=== PATIENT | female | born 1990 | race Caucasian/White ===

== ENCOUNTER → 2016-10-27 | Day surgery (SDC) | payer BC, OTHER ==
[2016-10-20 09:53] VITALS: Ht 162.6 cm; Wt 56.8 kg
[~2016-10-27] VITALS: Ht 162.6 cm; Wt 56.8 kg
[~2016-10-27] MED LIST: ALBU1AER9 INH; AMPH30CA3 PO; ATROPINE SULFATE 0.1 MG/ML 5ML SYR IV PRN; BUPIVACAINE/EPINEPHRINE 0.5% MPF 1:200,000 30 ML VIAL ONE; CEFAZOLIN 1000MG/55 ML D5W IV SCH; DEXAMETHASONE SOD INJ 4 MG/ML VIAL ONE; EpHEDrine SULFATE INJ 50 MG/ML AMP IV PRN; EpHEDrine SULFATE INJ 50 MG/ML AMP ONE; FENTANYL CITRATE INJ 50 MCG/1 ML 2 ML VIAL IV PRN; FENTANYL CITRATE INJ 50 MCG/1 ML 2 ML VIAL ONE; GLYCOPYRROLATE INJ 0.2 MG/ML VIAL ONE; HYDROmorphone INJ 1 MG/ML SYR IV PRN; KETOROLAC TROMETHAMINE 30 MG/ML VIAL IV. PRN; LACTATED RINGER'S 1000ML 1,000 ML IV SCH; LIDOCAINE HCL 2% 2 ML VIAL (20MG/ML) ONE; LIDOCAINE/EPINEPHRINE 1% INJ 50 ML VIAL ONE; MIDAZOLAM HCL 1 MG/ML 2ML VIAL ONE; MISCTAB26 PO; MoRPHine SULFATE 2 MG/ML CARP IV PRN; MoRPHine SULFATE 4 MG/ML 1 ML CARP\\VIAL IV PRN; NEOSTIGMINE METHYLSULFATE 5 MG/5 ML SYR ONE; ONDANSETRON INJ 2 MG/ML 2 ML VIAL IV PRN; ONDANSETRON INJ 2 MG/ML 2 ML VIAL ONE; OXYCODONE/ACETAMINOPHEN 5-325 TAB PO PRN; PHENYLEPHRINE HCL INJ 10 MG/ML VIAL ONE; PRLSR20 PO; PROPOFOL IV EMULSION 10 MG/ML 20 ML VIAL IV ONE; ROCURONIUM BROMIDE 10 MG/ML 5 ML VIAL ONE; ROPIVACAINE 0.5% 5 MG/ML 30 ML VIAL ONE; SODIUM CHLORIDE 0.9% 1000ML 1,000 ML IV SCH; SODIUM CHLORIDE 0.9% INJ 10 ML VIAL ONE; SUCCINYLCHOLINE CHLORIDE 20 MG/ML 10 ML VIAL IV ONE; TIZA4CAP PO; VALA500T60 PO; [UNRECOGNIZED DRUG - OTHER] PO
--- NOTE | 2016-10-27 12:39 | History & Physical Bridge Note ---
H&P Re-Evaluation Bridge Note: I have examined the patient, reviewed the History & Physical and in the interval since the performance of the History & Physical I have noted the following changes of clinical significance: No changes noted
--- NOTE | 2016-10-27 14:18 | [facility] Post Operative Brief Note ---
Immediate Operative Summary Operative Date Oct 27, 2016. Pre-Operative Diagnosis right shoulder acromioclavior athralgia Post-Operative Diagnosis same Procedure(s) Performed Right Shoulder Open Distal Clavicle Excision Surgeon Dr Saleh Receiver/Laborer Surgeon(s) 0 Estimated Blood Loss minimal Findings AC enlargement Specimens A. Right distal clavicle Drains 0 Anesthesia LMA Complication(s) None Disposition Recovery Room / PACU
--- NOTE | 2016-10-27 14:23 | Discharge Instructions ---
Discharge Instructions Admission Reason for Admission: Right Shoulder Acromioclaviolor Arthralgia Discharge Discharge Diagnosis / Problem: SAME Discharge Goals Goal(s): Decrease discomfort, Improve function, Increase independence Activity Recommendations Activity Limitations: per Instructions/Follow-up section Lifting Limitations: no more than 5 pounds Exercise/Sports Limitations: none May Resume Sexual Activity: when tolerated Shower/Bathe: may shower/bathe in 3 days, keep incision dry Driving or Machine Use: resume 1 day after discharge REST, SLING, GENTLE RANGE OF MOTION . Instructions / Follow-Up Instructions / Follow-Up pa NEXT WEEK, DR WEISS APRROX 2 WKS Current Hospital Diet Patient's current hospital diet: Discharge Diet Recommended Diet: Regular Diet Procedures Procedures Performed: Right Shoulder Open Distal Clavicle Excision Pending Studies Studies pending at discharge: no Medical Emergencies . Who to Call and When: Medical Emergencies: If at any time you feel your situation is an emergency, please call 911 immediately. . Non-Emergent Contact Non-Emergency issues call your: Surgeon Call Non-Emergent contact if: you have a fever, temperature is above 100.5, your pain is not controlled, your pain is worsening, your pain is concerning you , wound has increased drainage, wound has increased redness, wound has increased pain, you have any medication questions . "Provider Documentation" section prepared by Emeterio Weiss. VTE Core Measure Inpt VTE Proph given/why not?: Treatment not indicated
[2016-10-27 14:43] VITALS: TEMP 37.4
--- NOTE | 2016-10-27 14:48 | OPERATIVE REPORT ---
DATE OF OPERATION: 10/27/2016 PREOPERATIVE DIAGNOSIS: Right shoulder acromioclavicular joint arthralgia. POSTOPERATIVE DIAGNOSIS: Same. PROCEDURE: Open distal clavicle excision. SURGEON: Dr. Horton. HUMANITIES AND LANGUAGES PROFESSOR: None. ANESTHESIA: Laryngeal mask. INDICATIONS OF PROCEDURE: The patient is a 26-year-old female with right shoulder AC joint pain refractory to nonsurgical treatment including the injections. Her pain is isolated to the AC joint area and has been completely related to prior injections. She has edema on her MRI and what looks like some cystic and degenerative changes on the x-ray. Treatment options, risks and benefits were discussed and she elected to proceed with operative intervention. PROCEDURE IN DETAIL: Informed consent was obtained. The patient identified as Tere Johnson. She identified the operative site as the right shoulder. I marked with my initials. A preop surgical time out was performed. A preop dose of IV antibiotics was given. She was taken to the operating room where general anesthetic was administered. She was positioned beach chair with the neck held in neutral alignment. The torso was secured to the table. The heels were padded. The knees were flexed. The [employer] body positioner was utilized. The right upper extremity was prepped and draped in usual sterile fashion. The examination under anesthesia showed negative jerk test, grade 1 laxity anterior, grade 2 laxity posterior and full range of motion. The AC joint was not unstable, but it was mildly prominent. The right upper extremity was prepped and draped in usual sterile fashion. A longitudinal incision 2 cm in length was made just medial to paralleling the AC joint. Electrocautery and blunt dissection were utilized through the subcutaneous tissues down to the deltotrapezial fascia. This was then opened in line with the shaft of the clavicle. The distal one medial to the clavicle was exposed and resected parallel to the AC joint. A smooth symmetric resection was obtained. The margins were beveled with a rasp and rongeur and there were no bony prominences. The wound was irrigated. Hemostasis with electrocautery. The deltotrapezial fascia was closed with 0 Vicryl in an interrupted fashion, the skin with 2-0 Vicryls and a 4-0 Monocryl subcuticular stitch. A soft sterile dressing was applied. An arm sling was applied. She was awakened from anesthesia without difficulty and taken to recovery in stable condition. The resected distal clavicle appeared normal grossly. It was sent for specimen. Counts were correct at the end of case. Blood loss was minimal. At the conclusion of the operation, I spoke to patient's family and informed them of my findings. Postoperative instructions were given. She will be immobilized in a sling. She can gradually mobilize her arm for light activities as symptoms allow. She will be in for a followup appointment. At the conclusion of the operation, approximately 8 mL of 1% lidocaine and 0.5% Marcaine, both with epinephrine were injected into the AC joint and the incision site. I attest to the content of the Intraoperative Record and any orders documented therein. Any exceptio ns are noted below.
[2016-10-27 15:10] VITALS: BP 113/70; PULSE 66; O2SAT 99
--- NOTE | 2016-10-27 15:15 | Anesthesia Progress Nt - [facility] ---
Anesthesia Post Op Note Date & Time Oct 27, 2016 at 15:14 Vital Signs Pain Intensity: 2 Vital Signs Past 12 Hours Date Time Temp Pulse Resp B/P Pulse Ox O2 Delivery O2 Flow Rate FiO2 10/27/16 15:10 66 16 113/70 99 Room Air 10/27/16 14:43 37.4 70 16 97/63 99 Room Air 10/27/16 14:34 64 13 99 10/27/16 14:34 64 13 10/27/16 14:33 113/64 10/27/16 14:32 37.1 63 16 113/64 99 Room Air Mask 10/27/16 14:29 68 9 10/27/16 14:29 69 9 99 10/27/16 14:28 115/71 10/27/16 14:24 80 16 100 10/27/16 14:24 81 16 10/27/16 14:23 121/70 10/27/16 14:19 91 13 100 10/27/16 14:19 92 13 10/27/16 14:18 123/65 10/27/16 14:14 98 17 100 10/27/16 14:14 97 17 10/27/16 14:13 136/67 10/27/16 14:09 105 14 10/27/16 14:09 104 14 100 10/27/16 14:08 113/60 10/27/16 14:04 108 8 100 10/27/16 14:04 36.9 116 12 123/63 100 Mask 6 10/27/16 14:04 109 8 10/27/16 10:40 36.7 73 20 100/63 95 Room Air Notes Mental Status: alert / awake / arousable, participated in evaluation Pt Amnestic to Procedure: Yes Nausea / Vomiting: adequately controlled Pain: adequately controlled Airway Patency, RR, SpO2: stable & adequate BP & HR: stable & adequate Hydration State: stable & adequate Anesthetic Complications: no major complications apparent
== END | disposition home or self-care (01) ==
LOC: X.SURG 10:26
PROVIDERS: ATTEND Physical Medicine & Rehabilitation Sports Medicine
DX: M19.011 Primary osteoarthritis, right shoulder (principal); R55 Syncope and collapse; M25.511 Pain in right shoulder; K21.9 Gastro-esophageal reflux disease without esophagitis

== ENCOUNTER → 2016-11-14 | Outpatient (CLI) | payer BC, OTHER ==
[~2016-11-14] MED LIST changes: -ATROPINE SULFATE 0.1 MG/ML 5ML SYR IV PRN; -BUPIVACAINE/EPINEPHRINE 0.5% MPF 1:200,000 30 ML VIAL ONE; -CEFAZOLIN 1000MG/55 ML D5W IV SCH; -DEXAMETHASONE SOD INJ 4 MG/ML VIAL ONE; -EpHEDrine SULFATE INJ 50 MG/ML AMP IV PRN; -EpHEDrine SULFATE INJ 50 MG/ML AMP ONE; -FENTANYL CITRATE INJ 50 MCG/1 ML 2 ML VIAL IV PRN; -FENTANYL CITRATE INJ 50 MCG/1 ML 2 ML VIAL ONE; -GLYCOPYRROLATE INJ 0.2 MG/ML VIAL ONE; -HYDROmorphone INJ 1 MG/ML SYR IV PRN; -KETOROLAC TROMETHAMINE 30 MG/ML VIAL IV. PRN; -LACTATED RINGER'S 1000ML 1,000 ML IV SCH; -LIDOCAINE HCL 2% 2 ML VIAL (20MG/ML) ONE; -LIDOCAINE/EPINEPHRINE 1% INJ 50 ML VIAL ONE; -MIDAZOLAM HCL 1 MG/ML 2ML VIAL ONE; -MoRPHine SULFATE 2 MG/ML CARP IV PRN; -MoRPHine SULFATE 4 MG/ML 1 ML CARP\\VIAL IV PRN; -NEOSTIGMINE METHYLSULFATE 5 MG/5 ML SYR ONE; -ONDANSETRON INJ 2 MG/ML 2 ML VIAL IV PRN; -ONDANSETRON INJ 2 MG/ML 2 ML VIAL ONE; -OXYCODONE/ACETAMINOPHEN 5-325 TAB PO PRN; -PHENYLEPHRINE HCL INJ 10 MG/ML VIAL ONE; -PROPOFOL IV EMULSION 10 MG/ML 20 ML VIAL IV ONE; -ROCURONIUM BROMIDE 10 MG/ML 5 ML VIAL ONE; -ROPIVACAINE 0.5% 5 MG/ML 30 ML VIAL ONE; -SODIUM CHLORIDE 0.9% 1000ML 1,000 ML IV SCH; -SODIUM CHLORIDE 0.9% INJ 10 ML VIAL ONE; -SUCCINYLCHOLINE CHLORIDE 20 MG/ML 10 ML VIAL IV ONE
== END | disposition home or self-care (01) ==
LOC: C.RDSM 13:09
PROVIDERS: ATTEND Physical Medicine & Rehabilitation Sports Medicine
DX: M19.90 Unspecified osteoarthritis, unspecified site (principal); M25.511 Pain in right shoulder

== ENCOUNTER → 2017-04-12 | Outpatient (CLI) | payer BC, OTHER | END | disposition home or self-care (01) | LOC: C.PAPS 14:37 | PROVIDERS: ATTEND Obstetrics & Gynecology | DX: Z01.419 Encounter for gynecological examination (general) (routine) without abnormal findings (principal) ==

== ENCOUNTER → 2017-06-30 | Outpatient (CLI) | payer BC, OTHER | END | disposition home or self-care (01) | LOC: C.RDSM 10:30 | PROVIDERS: ATTEND Physical Medicine & Rehabilitation Sports Medicine | DX: M25.512 Pain in left shoulder (principal) ==

== ENCOUNTER → 2017-10-13 | Outpatient (CLI) | payer BC, OTHER ==
[~2017-10-13] MED LIST changes: +BIOT1CAP9 PO; +FOLI1TAB8 PO; +HYDR-5688 PO; +SULF1TAB92 PO; +VNTHFA/IN INH; +[UNRECOGNIZED DRUG - CODE] TOP
== END | disposition home or self-care (01) ==
LOC: C.PAPS 13:48
PROVIDERS: ATTEND Obstetrics & Gynecology
DX: N87.0 Mild cervical dysplasia (principal)

== ENCOUNTER → 2017-10-26 | Day surgery (SDC) | payer OTHER ==
[2017-10-13 12:17] VITALS: Ht 162.6 cm; Wt 59.1 kg
[~2017-10-26] VITALS: Ht 162.6 cm; Wt 59.1 kg
[~2017-10-26] MED LIST changes: +ACETAMINOPHEN 1000 MG/100 ML IV IV ONE; -ALBU1AER9 INH; +ATROPINE SULFATE 0.1 MG/ML 5ML SYR IV PRN; +BUPIVACAINE/EPINEPHRINE 0.5% MPF 1:200,000 30 ML VIAL ONE; +CEFAZOLIN 1000MG IV PUSH 5 ML IV SCH; +DEXAMETHASONE SOD INJ 4 MG/ML VIAL ONE; +EpHEDrine SULFATE INJ 50 MG/ML AMP IV PRN; +FENTANYL CITRATE INJ 50 MCG/1 ML 2 ML VIAL IV PRN; +FENTANYL CITRATE INJ 50 MCG/1 ML 2 ML VIAL ONE; +GLYCOPYRROLATE INJ 0.2 MG/ML VIAL ONE; +HYDROmorphone INJ 1 MG/ML SYR ONE; +LACTATED RINGER'S 1000ML 1,000 ML IV SCH; +LIDOCAINE HCL 2% 2 ML VIAL (20MG/ML) ONE; +LIDOCAINE/EPINEPHRINE 1% 20 ML VIAL ONE; +MIDAZOLAM HCL 1 MG/ML 2ML VIAL ONE; +MoRPHine SULFATE 2 MG/ML CARP IV PRN; +MoRPHine SULFATE 4 MG/ML 1 ML CARP\\VIAL IV PRN; +NEOSTIGMINE METHYLSULFATE 5 MG/5 ML SYR ONE; +ONDANSETRON INJ 2 MG/ML 2 ML VIAL IV PRN; +ONDANSETRON INJ 2 MG/ML 2 ML VIAL ONE; +OXYCODONE/ACETAMINOPHEN 5-325 TAB ONE; +OXYCODONE/ACETAMINOPHEN 5-325 TAB PO PRN; +PROMETHAZINE HCL INJ 12.5 MG in SODIUM CHLORIDE 0.9% 50ML 50 ML IV PRN; +PROPOFOL IV EMULSION 10 MG/ML 20 ML VIAL IV ONE; +ROCURONIUM BROMIDE 10 MG/ML 5 ML VIAL IV ONE; +ROPIVACAINE 0.5% 5 MG/ML 30 ML VIAL ONE; +SODIUM CHLORIDE 0.9% 1000ML 1,000 ML IV SCH; -[UNRECOGNIZED DRUG - OTHER] PO
--- NOTE | 2017-10-26 12:22 | [facility] Post Operative Brief Note ---
Immediate Operative Summary Operative Date Oct 26, 2017. Pre-Operative Diagnosis Left Shoulder AC Joint Arthritis Post-Operative Diagnosis Same Procedure(s) Performed Left Shoulder Open Distal Clavicle Excision Surgeon Dr. Horton [place]aroo Surgeon(s) Seble Servin PA-C, Blanca Sogn, student Estimated Blood Loss Minimal Findings none Specimens A.) Left Distal Clavicle Anesthesia LMA, local Complication(s) None Disposition Recovery Room / PACU
--- NOTE | 2017-10-26 12:43 | Discharge Instructions-SurgCtr ---
Discharge Instructions Date of Service Oct 26, 2017. Visit Reason for Visit: Left Shoulder Ac Joint Arthritis Discharge Discharge Diagnosis / Problem: left shoulder AC joint arthritis Discharge Goals Goal(s): Decrease discomfort, Improve function, Increase independence Activity Recommendations Activity Limitations: per Instructions/Follow-up section Weightbearing Status: Left non-weightbearing (left shoulder) Anesthesia . Post Anesthesia Instructions: If you have had General Anesthesia or IV Sedation: * Do not drive today. * Resume driving when surgeon permits. * Do not make important decisions or sign legal documents today. * Call surgeon for: 1. Temperature elevations greater than 101 degrees F. 2. Uncontrollable pain. 3. Excessive bleeding. 4. Persistent nausea and vomiting. 5. Medication intolerance (nausea, vomiting or rash). * For nausea and vomiting use only clear liquids such as: tea, soda, bouillon until nausea subsides, then gradually increase diet as tolerated. * If you have any concerns or questions, call your surgeon's office. If physician is unavailable and it is an emergency, call 911 or go to the nearest emergency room. . Instructions / Follow-Up Instructions / Follow-Up The following are instructions to follow after "Shoulder Surgery" including, Acromioplasty, Rotator Cuff Repair and Instability Surgery ACTIVITY RECOMMENDATIONS: * Minimize activity after surgery. * No excessive walking, jogging, sports or laboring. * Return to activity is individualized depending on the patient and type of surgery. * Driving is not permitted until at least your first post operative visit. Please ask your doctor when it is safe to resume driving. * Expect increased discomfort with increased activity. Continue to ice the shoulder as needed. SCHOOL/WORK RECOMMENDATIONS: * You may return to sedentary work or school when you are feeling more comfortable. This is usually 3-7 days after surgery. MEDICATIONS: * You will have a prescription for pain medication and an anti-inflammatory medication after surgery. * Use the pain medication for severe pain and the anti-inflammatory for less severe pain. Once the pain medication has run out, try to use the anti-inflammatory medication. If this is not effective, contact the office for assistance. * The pain medication may cause nausea, constipation and drowsiness. You should see how they affect you before driving or similar activity. * The anti-inflammatory medication may cause stomach upset and bleeding. If this occurs let your doctor know immediately . * Take a stool softener like Colace or a laxative like Senokot to prevent constipation. DIET: * Resume previous diet. SPECIAL CARE: ICE: You have the option of an ice cooler, gel packs or ice bags. * If you have an ice cooler, refer to the instructions for that device. The ice cooler may be used continuously. * If you do not have an ice cooler, you will need to use ice bags or gel packs. Do not apply ice directly to the skin. Use a thin dressing or kindra shirt between the skin and ice bag. Apply ice for 20-30 minutes and repeat every 2-4 hours. This is especially important for the first 7-10 days after surgery. Once the pain improves, use ice as needed. ELEVATION: * You may be more comfortable sleeping in an upright position. Use the sling to elevate your arm. DRESSING: * Your dressing will be changed at your first therapy appointment approximately 4-5 days after surgery. Band-aids, tape strips or gauze may be applied. You may then change your dressing daily. * Reapply dressing followed by the EBIce cooling pad (if chosen) and then the sling. * Always wash your hands prior to touching the incision area. * Once the stitches are removed, you may leave the wound open to air or cover with gauze. * Expect some bloody drainage for the first few days after surgery. * Leave the tape strips, if present, in place for 5-7 days. * Band-aids and gauze may be changed daily. * There may be a gauze pad in your armpit area. This can be changed daily or replaced by a dry washcloth. SLING/BRACE: * You will need to use a sling or brace after surgery. The length of time the sling is used is dependent upon the type of surgery performed. * Arthroscopic Acromioplasty requires use of the sling for 2-4 weeks for comfort. * Labral procedures and Rotator Cuff Repairs require use of the sling for a longer period of time. Please check with your doctor prior to discontinuing the sling. BATHING: * You may shower or sponge-bathe immediately after surgery. The post operative shoulder dressing is mostly water-tight. You may shower right over this dressing, but be reasonably careful not to get the gauze or incision wet. * Once the dressing has been changed on the fourth or fifth day after surgery, you may shower and get the incision wet. * Wash with regular soap and water. * Do not bathe (submerge the incision), soak, swim or use a hot tub until the incision is completely healed over with normal skin and the doctor has given the OK to proceed. * There is no need to apply any ointments, powders or salves to your incision. * Do not apply alcohol or hydrogen peroxide directly to the incision. * Diluted peroxide (50:50 mixture with sterile saline) may be used to clean dried blood from around the incision area. THERAPY: * You will begin therapy four or five days after surgery. * Organized therapy with the therapist is important for the first 2-4 months after surgery depending on the type of procedure. During that time you will attend therapy 1-3 times per week. * You will also need to do daily exercises for range of motion and strength as instructed. * Patients who have a Capsular Shift Procedure will need to abide by temporary range of motion limitations. * Patients having Rotator Cuff Surgery are not allowed to actively lift their arms until 4-6 weeks after surgery. * Please check with your doctor regarding appropriate motion restrictions. FOLLOW UP VISIT: * If not already scheduled, please call the office at to schedule a follow-up appointment for 10 days after surgery and monthly thereafter. * You have a physical therapy appointment on 10/30/2017 at 1:00 PM. * You have a follow-up with Dr. Horton on 11/08/2017 at 3:00 PM Diet Recommendations Home Diet: no limitations, resume previous diet Procedures Procedures Performed: Left Shoulder Open Distal Clavicle Excision Pending Studies Studies pending at discharge: no Medical Emergencies . Who to Call and When: Medical Emergencies: If at any time you feel your situation is an emergency, please call 911 immediately. . Non-Emergent Contact Non-Emergency issues call your: Surgeon Call Non-Emergent contact if: temperature is above 101, your pain is not controlled, your pain is worsening, your pain is unusual for you, wound has increased drainage, wound has increased redness, wound has increased pain, you have any medication questions . . "Provider Documentation" section prepared by Helen Servin. . [place] Drug Monitoring Program Search Results: patient reviewed within database, no issues identified
--- NOTE | 2017-10-26 12:47 | [facility] Operative Report ---
Operative Report Operative Date Oct 26, 2017. Pre-Operative Diagnosis Left Shoulder AC Joint Arthritis Post-Operative Diagnosis Same Procedure(s) Performed Left Shoulder Open Distal Clavicle Excision Surgeon Dr. Horton Roll Forming Machine Operator Surgeon(s) Helen Servin PA-C, MESSI Birch student Estimated Blood Loss Minimal Findings Left shoulder AC joint arthritis Specimens A.) Left Distal Clavicle Drains None Anesthesia LMA, local Complication(s) None Disposition Recovery Room / PACU Indications Patient is a 27-year-old female who presented to our office with complaints of left shoulder pain. It's been ongoing for at least a year. Her pain has continued to progressively worsened. X-rays show left shoulder acromioclavicular joint arthritis. Surgical intervention discussed and she wished to proceed with surgery. Risks and complications discussed and informed consent was obtained. Description of Procedure Patient was taken to the operating room and placed under general anesthesia. She was given 1 g of IV Ancef for surgical prophylaxis. Timeout was performed. She was prepped and draped in routine sterile fashion. I was present during the entire case, please see Dr. Horton's operative report for further detail. She was awakened and transferred to the recovery room in stable condition. I attest to the content of the Intraoperative Record and any orders documented therein. Any exceptions are noted below.
--- NOTE | 2017-10-26 12:58 | [facility] Operative Report ---
Operative Report Operative Date Oct 26, 2017. Pre-Operative Diagnosis Left Shoulder AC Joint Arthritis Post-Operative Diagnosis Same Procedure(s) Performed Left Shoulder Open Distal Clavicle Excision Surgeon Dr. Horton Hospitalist Physician Surgeon(s) Helen Servin PA-C, MESSI Birch student Estimated Blood Loss Minimal Findings None Specimens A.) Left Distal Clavicle Anesthesia laryngeal mask. Complication(s) None Disposition Recovery Room / PACU Indications The patient is a 27-year-old female with pain at her left before meals joint. Radiographs show degenerative change. She has had a similar problem on the contralateral shoulder treated successfully with distal clavicle excision. She is taken to surgery for failure of nonoperative management and for excision of her distal clavicle. Description of Procedure Informed consent was obtained. The patient was identified as Brit [email or web address]. She identified the operative site as the left distal clavicle. I marked with my initials. Preoperative surgical timeout was performed. Appropriate dose of IV antibiotics was given. She was taken to the operating room positioned supine. The anesthetic was administered. Examination under anesthesia revealed grade 1 sulcus grade 2 laxity of the shoulder front and back equal bilaterally in full unrestricted range of motion. She was then positioned beachchair using the [facility] body positioner. The mastoid process was padded the neck was held in neutral alignment the torso secured to the table heels were padded knees were flexed. The left upper extremity was prepped and draped in the usual sterile fashion. DVT prophylaxis was not indicated. A 2-1/2 cm incision was made parallel to the skin creases and the distal clavicle. Electrocautery and blunt dissection were were utilized down to the skin and subcutaneous tissues until the deltotrapezial fascia was identified. This was then divided in line with the shaft of the clavicle and the distal clavicle was exposed. The joint orientation was identified and the distal 7-10 mm of clavicle were then transected and removed with an oscillating saw. Distal clavicle appeared to be irregular but not notably soft. There were no spurs remaining around the resected clavicle which was stable. The posterior ligaments were preserved. There were no spurs on the acromial portion. The wound was then irrigated with sterile saline. Prior to start of the procedure I injected with a 50-50 mixture of 1% lidocaine and 0.5% Marcaine both containing epinephrine into the skin and subcutaneous tissues as well as deep within the fat underneath the before meals joint. Several more cc were injected at the end of the operation. Bleeding was controlled with pressure and electrocautery. The fascia was closed with interrupted 0 Vicryl's. The skin was closed with 2-0 Vicryl and a running 3-0 Prolene subcuticular stitch. A soft sterile dressing was applied along with arm sling. The patient was awakened from anesthesia without difficulty. She was taken to the recovery room in stable condition. There were no complications. The resected distal clavicle sent for specimen counts were correct in the case blood loss was minimal. At the conclusion of the operation spoke to the patient's father informed him of my findings gave detailed postoperative instructions. She will be able to have early active movement of her arm and may wean out of the sling as tolerated. She will be in for dressing change early next week. I attest to the content of the Intraoperative Record and any orders documented therein. Any exceptions are noted below.
--- NOTE | 2017-10-26 13:27 | Anesthesia Progress Nt - [facility] ---
Anesthesia Post Op Note Date & Time Oct 26, 2017 at 13:27 Vital Signs Pain Intensity: 2 Vital Signs Past 12 Hours Date Time Temp Pulse Resp B/P (MAP) Pulse Ox O2 Delivery O2 Flow Rate FiO2 10/26/17 13:23 37.3 76 20 109/65 100 Room Air 10/26/17 13:04 83 16 98 10/26/17 13:04 84 16 10/26/17 13:04 84 16 10/26/17 13:04 83 16 98 10/26/17 13:00 110/61 10/26/17 13:00 110/61 10/26/17 12:59 71 24 97 10/26/17 12:59 71 24 97 10/26/17 12:59 71 24 10/26/17 12:59 71 24 10/26/17 12:55 112/63 10/26/17 12:55 112/63 10/26/17 12:54 87 20 100 10/26/17 12:54 87 20 100 10/26/17 12:54 87 20 10/26/17 12:54 87 20 10/26/17 12:51 112/62 10/26/17 12:51 112/62 10/26/17 12:49 82 20 10/26/17 12:49 82 20 100 10/26/17 12:49 82 20 100 10/26/17 12:49 82 20 10/26/17 12:45 119/62 10/26/17 12:45 119/62 10/26/17 12:44 88 16 100 10/26/17 12:44 87 16 10/26/17 12:44 88 16 100 10/26/17 12:44 87 16 10/26/17 12:40 121/63 10/26/17 12:40 121/63 10/26/17 12:40 118/66 10/26/17 12:40 118/66 10/26/17 12:39 102 99 10/26/17 12:39 102 10/26/17 12:39 102 10/26/17 12:39 36.4 97 16 118/66 100 Diffusion Mask 6 10/26/17 12:39 102 99 10/26/17 10:02 36.6 75 16 104/71 (82) 100 Room Air Notes Mental Status: alert / awake / arousable, participated in evaluation Pt Amnestic to Procedure: Yes Nausea / Vomiting: adequately controlled Pain: adequately controlled Airway Patency, RR, SpO2: stable & adequate BP & HR: stable & adequate Hydration State: stable & adequate Anesthetic Complications: no major complications apparent
[2017-10-26 14:35] VITALS: BP 104/71; PULSE 71; TEMP 37; O2SAT 99
== END | disposition home or self-care (01) ==
LOC: X.SURG 09:45
PROVIDERS: ATTEND Physical Medicine & Rehabilitation Sports Medicine
DX: M19.012 Primary osteoarthritis, left shoulder (principal); J45.909 Unspecified asthma, uncomplicated; K21.9 Gastro-esophageal reflux disease without esophagitis; F90.9 Attention-deficit hyperactivity disorder, unspecified type

== ENCOUNTER → 2017-12-08 | Outpatient (CLI) | payer OTHER ==
[~2017-12-08] MED LIST changes: -ACETAMINOPHEN 1000 MG/100 ML IV IV ONE; -ATROPINE SULFATE 0.1 MG/ML 5ML SYR IV PRN; -BUPIVACAINE/EPINEPHRINE 0.5% MPF 1:200,000 30 ML VIAL ONE; -CEFAZOLIN 1000MG IV PUSH 5 ML IV SCH; -DEXAMETHASONE SOD INJ 4 MG/ML VIAL ONE; -EpHEDrine SULFATE INJ 50 MG/ML AMP IV PRN; -FENTANYL CITRATE INJ 50 MCG/1 ML 2 ML VIAL IV PRN; -FENTANYL CITRATE INJ 50 MCG/1 ML 2 ML VIAL ONE; -GLYCOPYRROLATE INJ 0.2 MG/ML VIAL ONE; -HYDROmorphone INJ 1 MG/ML SYR ONE; -LACTATED RINGER'S 1000ML 1,000 ML IV SCH; -LIDOCAINE HCL 2% 2 ML VIAL (20MG/ML) ONE; -LIDOCAINE/EPINEPHRINE 1% 20 ML VIAL ONE; -MIDAZOLAM HCL 1 MG/ML 2ML VIAL ONE; -MoRPHine SULFATE 2 MG/ML CARP IV PRN; -MoRPHine SULFATE 4 MG/ML 1 ML CARP\\VIAL IV PRN; -NEOSTIGMINE METHYLSULFATE 5 MG/5 ML SYR ONE; -ONDANSETRON INJ 2 MG/ML 2 ML VIAL IV PRN; -ONDANSETRON INJ 2 MG/ML 2 ML VIAL ONE; -OXYCODONE/ACETAMINOPHEN 5-325 TAB ONE; -OXYCODONE/ACETAMINOPHEN 5-325 TAB PO PRN; -PROMETHAZINE HCL INJ 12.5 MG in SODIUM CHLORIDE 0.9% 50ML 50 ML IV PRN; -PROPOFOL IV EMULSION 10 MG/ML 20 ML VIAL IV ONE; -ROCURONIUM BROMIDE 10 MG/ML 5 ML VIAL IV ONE; -ROPIVACAINE 0.5% 5 MG/ML 30 ML VIAL ONE; -SODIUM CHLORIDE 0.9% 1000ML 1,000 ML IV SCH
== END | disposition home or self-care (01) ==
LOC: C.RDSM 09:49
PROVIDERS: ATTEND Physical Medicine & Rehabilitation Sports Medicine
DX: M13.812 Other specified arthritis, left shoulder (principal)

== ENCOUNTER 2018-05-18 16:30 | Emergency (ER) | payer OTHER ==
[~2018-05-18] VITALS: Ht 162.6 cm; Wt 59.8 kg
[~2018-05-18 16:30] MED LIST changes: -HYDR-5688 PO
[2018-05-18 16:38] VITALS: BP 113/72; TEMP 36.7; Ht 162.6 cm; Wt 59.8 kg
[2018-05-18] MEDS ORDERED: IBUPROFEN 600 MG TAB PO STA (17:52)
--- NOTE | 2018-05-18 18:21 | DIAGNOSTIC IMAGING REPORT ---
C-SPINE ROUTINE 4 OR 5 VIEWS CLINICAL HISTORY: Neck pain status post trauma COMPARISON STUDY: 12/08/2010 FINDINGS: The prevertebral soft tissues are normal. No fractures or subluxations are visualized. The bony neural foramina appear widely patent bilaterally. IMPRESSION: Normal conventional radiographic evaluation of the cervical spine. Electronically signed by: Edin Patel M.D. 05/18/2018 6:20 PM Dictated Date/Time: 05/18/2018 6:19 PM
[2018-05-18] MEDS ORDERED: CYCL10TA6 PO (18:39)
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
[2018-05-18 18:52] VITALS: PULSE 82; O2SAT 99
== END 2018-05-18 18:53 | disposition home or self-care (01) ==
LOC: C.EDB 16:31 → C.EDD 18:53
DX: S16.1XXA Strain of muscle, fascia and tendon at neck level, initial encounter (principal); V43.52XA Car driver injured in collision with other type car in traffic accident, initial encounter; F90.9 Attention-deficit hyperactivity disorder, unspecified type; K21.9 Gastro-esophageal reflux disease without esophagitis; Z87.820 Personal history of traumatic brain injury

== ENCOUNTER 2020-10-20 07:30 | Inpatient (IN) ==
[2020-10-20] MEDS ORDERED: OXYTOCIN 30 UNITS/500 ML BAG IV PRN ×2 (07:46)
[2020-10-20] MEDS: LACTATED RINGER'S 1,000 ML IV PRN ×4 (08:10→22:28)
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
[2020-10-20 08:38] LABS: Hematocrit (blood only) 35.2 % (37-47); Hemoglobin 11.9 g/dL (12.0-16.0); Mean Corpuscular Hemoglobin 30.6 pg (25-34); Mean Corpuscular Hgb Conc 33.8 g/dL (32-36); Mean Corpuscular Volume 90.5 fL (80-100); Mean Platelet Volume 10.6 fL (7.4-10.4); Platelet Count 296 K/uL (130-400); RDW Coefficient of Variation 13.3 % (11.5-14.5); RDW Standard Deviation 43.8 fL (36.4-46.3); Red Blood Count 3.89 M/uL (4.2-5.4); White Blood Count 11.67 K/uL (4.8-10.8)
[2020-10-20] MEDS ORDERED: fentaNYL citrate 100 MCG/2 ML VIAL ONE (12:58)
[2020-10-20] MEDS ORDERED: ePHEDrine sulfate 50 MG/ML AMP ONE (12:58)
[2020-10-20] MEDS ORDERED: BUPIVACAINE 0.25% 30 ML VIAL ONE (12:58)
[2020-10-20] MEDS ORDERED: SODIUM CHLORIDE 0.9% INJ 10 ML VIAL ONE (12:58)
[2020-10-20] MEDS ORDERED: fentaNYL 2MCG/ML ROPIVACAINE 1.25MG/ML 100 ML BAG EPI ONE (12:59)
[2020-10-20] MEDS ORDERED: NALOXONE HCL 1 MG in SODIUM CHLORIDE 0.9% 1000ML 1,000 ML IV PRN (13:38)
[2020-10-20] MEDS ORDERED: diphenhydrAMINE 50 MG/ML VIAL IV PRN (13:38)
[2020-10-20] MEDS ORDERED: ePHEDrine sulfate 50 MG/ML AMP IV PRN (13:38)
[2020-10-20] MEDS ORDERED: ONDANSETRON INJ 2 MG/ML 2 ML VIAL IV PRN (13:38)
[2020-10-20] MEDS ORDERED: NALOXONE HCL 0.4 MG/1 ML VIAL/CARP IV PRN (13:38)
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
--- NOTE | 2020-10-20 14:43 | Labor Progress Brief Note ---
Date of Service October 20, 2020 Subjective Reason For Note: Routine Evaluation Assessment & Plan (1) Post term over 40 weeks: (2) Gestational diabetes mellitus (GDM): Cat 1, AROM clr, continue pitocin, Vitals with occasional mild range Admission and Anticipated Discharge Date Admission Date: October 20, 2020 Physical Exam Genitourinary: OB Exam Abdomen: + vertex Manual OB Exam: + cervical dilation 4 cm, + cervical effacement 80%, + station -2 and + amniotic fluid clear OB Exam Monitor Tracing: + external FHT monitor used, + external uterine monitor used, + category I and + normal FHT variability; no early decelerations present, no late decelerations present and no variable decelerations Results & Data ([facility]) Vital Signs (Past 12 Hours) Vital Signs Temp Pulse Resp BP Pulse Ox Pulse Ox 10/20/20 14:39 87 98 10/20/20 14:34 86 97 10/20/20 14:32 87 134/74 10/20/20 14:30 18 10/20/20 14:29 82 97 10/20/20 14:24 81 97 10/20/20 14:22 88 134/79 10/20/20 14:19 94 H 98 10/20/20 14:14 93 H 98 10/20/20 14:11 90 132/69 10/20/20 14:09 102 H 98 10/20/20 14:08 98 H 133/63 10/20/20 14:05 100 H 121/61 10/20/20 14:04 98 H 97 10/20/20 14:02 94 H 134/65 10/20/20 14:00 18 10/20/20 13:59 95 H 137/63 97 10/20/20 13:54 96 H 99 10/20/20 13:53 99 H 156/87 H 10/20/20 13:50 92 H 141/86 H 10/20/20 13:49 91 H 99 10/20/20 13:47 93 H 147/94 H 10/20/20 13:44 102 H 99 10/20/20 13:43 93 H 126/81 10/20/20 13:41 80 126/78 10/20/20 13:40 98 10/20/20 13:39 84 98 10/20/20 13:37 92 H 136/81 10/20/20 13:35 96 H 124/74 10/20/20 13:34 94 H 98 10/20/20 13:30 36.9 C 92 H 18 98 10/20/20 13:29 88 99 10/20/20 13:24 92 H 98 10/20/20 13:01 97 H 149/63 H 10/20/20 13:00 36.9 C 18 10/20/20 12:32 89 121/61 10/20/20 12:01 85 118/61 10/20/20 12:00 18 10/20/20 11:32 36.8 C 18 10/20/20 11:16 81 132/80 10/20/20 11:01 85 126/74 10/20/20 10:45 81 131/82 10/20/20 10:00 18 10/20/20 09:30 18 10/20/20 09:07 90 133/69 10/20/20 09:00 18 10/20/20 08:47 36.9 C 87 18 126/80 10/20/20 08:33 87 126/80 10/20/20 08:15 18 10/20/20 07:40 108 H 129/78 10/20/20 07:33 36.9 C 18 Coding Level of Care Code None Diagnoses Post term over 40 weeks O48.0 Gestational diabetes mellitus (GDM) O24.419
[2020-10-20] MEDS: fentaNYL 2MCG/ML ROPIVACAINE 1.25MG/ML 100 ML BAG EPI PRN (21:10)
[2020-10-20] MEDS ORDERED: NURSING L&D Epidural Breakthrough Pain Update ONE (23:10)
[2020-10-21] MEDS ORDERED: SODIUM CHLORIDE 0.9% INJ 10 ML VIAL ONE ×2 (00:22→11:32)
[2020-10-21] MEDS ORDERED: BUPIVACAINE 0.25% 30 ML VIAL ONE ×2 (00:22→11:32)
[2020-10-21] MEDS ORDERED: fentaNYL 2MCG/ML ROPIVACAINE 1.25MG/ML 100 ML BAG EPI PRN (00:28)
--- NOTE | 2020-10-21 00:40 | Communication Note ---
Date of Service: October 21, 2020 The patient was complaining of pain in her lower pelvic region. Checked to ice she had a T10 level on the L and T11 level on the R. She was given a bolus of 0.125% bupivacaine 5 ml x2 q 1 min. Her PCEA was increased to 16 ml/hr with 30 ml one hour limit. Her vital signs were monitored for fifteen minutes and remained stable after the bolus. The patient is resting comfortably.
[2020-10-21] MEDS: fentaNYL 2MCG/ML ROPIVACAINE 1.25MG/ML 100 ML BAG EPI PRN ×3 (02:26→10:53)
[2020-10-21] MEDS: LACTATED RINGER'S 1,000 ML IV PRN ×3 (06:36→10:59)
--- NOTE | 2020-10-21 07:52 | Labor Progress Brief Note ---
Date of Service October 21, 2020 Subjective Reason For Note: Routine Evaluation Assessment & Plan (1) Post term over 40 weeks: (2) Gestational diabetes mellitus (GDM): No progress. Pitocin at 30. Will D/c Pitocin for 30 minutes and will restart at 10. Cat 1, AROM clr, Vitals with occasional mild range Admission and Anticipated Discharge Date Admission Date: October 20, 2020 Physical Exam Genitourinary: OB Exam Abdomen: + vertex Manual OB Exam: + cervical dilation 4 cm, + cervical effacement 80%, + station -2 and + amniotic fluid clear OB Exam Monitor Tracing: + external FHT monitor used, + external uterine monitor used and + category I; no normal FHT variability, no early decelerations present, no late decelerations present and no variable decelerations Results & Data ([facility]) Vital Signs (Past 12 Hours) Vital Signs Temp Pulse Resp BP Pulse Ox 10/21/20 07:44 94 H 99 10/21/20 07:42 86 130/79 10/21/20 07:39 88 98 10/21/20 07:34 88 98 10/21/20 07:32 91 H 132/85 10/21/20 07:30 36.7 C 18 10/21/20 07:29 104 H 99 10/21/20 07:24 91 H 98 10/21/20 07:22 98 H 121/70 10/21/20 07:19 93 H 98 10/21/20 07:14 92 H 99 10/21/20 07:12 94 H 126/71 10/21/20 07:09 96 H 98 10/21/20 07:04 98 H 99 10/21/20 06:59 97 H 98 10/21/20 06:54 109 H 98 10/21/20 06:52 109 H 128/69 10/21/20 06:49 101 H 98 10/21/20 06:44 94 H 96 10/21/20 06:41 99 H 119/59 L 10/21/20 06:39 92 H 96 10/21/20 06:34 100 H 95 10/21/20 06:31 95 H 16 124/58 L 10/21/20 06:29 95 H 95 10/21/20 06:24 93 H 96 10/21/20 06:21 92 H 113/56 L 10/21/20 06:19 92 H 96 10/21/20 06:14 89 96 10/21/20 06:12 86 18 111/56 L 10/21/20 06:09 92 H 97 10/21/20 06:04 102 H 96 10/21/20 06:02 101 H 142/62 H 10/21/20 05:59 100 H 96 10/21/20 05:54 107 H 96 10/21/20 05:49 109 H 96 10/21/20 05:44 106 H 96 10/21/20 05:43 108 H 144/66 H 10/21/20 05:39 130 H 97 10/21/20 05:34 102 H 96 10/21/20 05:32 37.3 C 105 H 18 136/65 10/21/20 05:29 110 H 95 10/21/20 05:24 111 H 95 10/21/20 05:21 109 H 112/55 L 10/21/20 05:19 109 H 95 10/21/20 05:16 102 H 91 10/21/20 05:14 106 H 94 10/21/20 05:12 103 H 117/55 L 10/21/20 05:10 102 H 92 10/21/20 05:09 103 H 94 10/21/20 05:04 102 H 94 10/21/20 05:01 101 H 116/53 L 10/21/20 04:59 105 H 94 10/21/20 04:57 105 H 94 10/21/20 04:54 103 H 94 10/21/20 04:52 102 H 94 10/21/20 04:51 100 H 117/54 L 10/21/20 04:49 104 H 95 10/21/20 04:44 104 H 95 10/21/20 04:42 103 H 111/53 L 10/21/20 04:39 104 H 95 10/21/20 04:34 112 H 96 10/21/20 04:31 109 H 18 133/68 10/21/20 04:29 37.3 C 106 H 16 96 10/21/20 04:25 107 H 94 10/21/20 04:24 101 H 94 10/21/20 04:21 109 H 128/62 10/21/20 04:20 97 H 94 10/21/20 04:19 96 H 95 10/21/20 04:14 97 H 94 10/21/20 04:11 99 H 121/59 L 10/21/20 04:09 96 H 94 10/21/20 04:04 95 H 94 10/21/20 04:02 96 H 94 10/21/20 04:01 92 H 18 118/56 L 10/21/20 03:59 96 H 94 10/21/20 03:57 91 H 94 10/21/20 03:54 99 H 94 10/21/20 03:52 89 126/64 10/21/20 03:51 95 H 94 10/21/20 03:49 94 H 95 10/21/20 03:44 87 95 10/21/20 03:41 89 16 119/63 10/21/20 03:39 92 H 95 10/21/20 03:34 91 H 97 10/21/20 03:32 96 H 18 139/67 10/21/20 03:29 88 98 10/21/20 03:24 113 H 98 10/21/20 03:22 109 H 129/65 10/21/20 03:19 104 H 96 10/21/20 03:14 102 H 96 10/21/20 03:11 96 H 122/57 L 10/21/20 03:09 102 H 93 10/21/20 03:04 98 H 96 10/21/20 03:02 99 H 93 10/21/20 03:01 110 H 16 123/60 10/21/20 02:59 104 H 96 10/21/20 02:56 97 H 94 10/21/20 02:54 91 H 96 10/21/20 02:51 93 H 122/59 L 10/21/20 02:49 94 H 96 10/21/20 02:44 95 H 97 10/21/20 02:41 93 H 16 118/56 L 10/21/20 02:39 95 H 97 10/21/20 02:34 94 H 97 10/21/20 02:33 98 H 126/62 10/21/20 02:32 36.9 C 18 10/21/20 02:29 101 H 98 10/21/20 02:24 104 H 97 10/21/20 02:19 85 97 10/21/20 02:14 86 96 10/21/20 02:09 90 95 10/21/20 02:04 93 H 94 10/21/20 02:01 94 H 18 136/71 10/21/20 01:59 86 96 10/21/20 01:54 86 95 10/21/20 01:51 85 131/69 94 10/21/20 01:49 85 95 10/21/20 01:44 81 95 10/21/20 01:41 86 133/78 10/21/20 01:39 83 96 10/21/20 01:34 81 96 10/21/20 01:31 85 127/71 10/21/20 01:29 83 97 10/21/20 01:24 82 98 10/21/20 01:22 81 18 130/74 10/21/20 01:19 86 98 10/21/20 01:14 80 98 10/21/20 01:11 83 119/71 10/21/20 01:09 83 99 10/21/20 01:08 36.5 C 18 10/21/20 01:04 88 100 10/21/20 01:02 83 133/83 10/21/20 00:59 88 100 10/21/20 00:54 87 99 10/21/20 00:51 88 135/68 10/21/20 00:49 88 98 10/21/20 00:44 88 99 10/21/20 00:41 87 128/67 10/21/20 00:39 88 100 10/21/20 00:36 36.8 C 18 10/21/20 00:34 89 99 10/21/20 00:31 89 119/69 10/21/20 00:29 89 99 10/21/20 00:25 18 10/21/20 00:24 102 H 99 10/21/20 00:22 99 H 139/79 10/21/20 00:19 74 96 10/21/20 00:14 71 96 10/21/20 00:11 74 141/78 H 10/21/20 00:09 72 97 10/21/20 00:04 75 97 10/21/20 00:01 78 18 138/77 10/20/20 23:59 75 98 10/20/20 23:54 79 98 10/20/20 23:51 74 137/78 10/20/20 23:49 77 99 10/20/20 23:47 36.7 C 18 10/20/20 23:44 80 100 10/20/20 23:42 88 139/74 10/20/20 23:39 82 99 10/20/20 23:34 81 97 10/20/20 23:32 78 126/77 10/20/20 23:29 90 97 10/20/20 23:24 98 H 99 10/20/20 23:21 96 H 129/80 10/20/20 23:19 96 H 100 10/20/20 23:14 91 H 99 10/20/20 23:12 93 H 18 131/69 10/20/20 23:09 93 H 99 10/20/20 23:04 91 H 99 10/20/20 23:01 91 H 18 126/64 10/20/20 22:59 93 H 98 10/20/20 22:54 88 98 10/20/20 22:49 80 98 10/20/20 22:44 84 96 10/20/20 22:41 80 139/73 10/20/20 22:39 79 96 10/20/20 22:34 77 96 10/20/20 22:31 72 137/72 10/20/20 22:29 77 97 10/20/20 22:24 77 97 10/20/20 22:22 80 137/81 10/20/20 22:19 78 97 10/20/20 22:14 77 97 10/20/20 22:13 80 16 132/78 10/20/20 22:09 79 97 10/20/20 22:04 107 H 99 10/20/20 22:02 88 139/85 10/20/20 21:59 92 H 99 10/20/20 21:56 36.6 C 18 10/20/20 21:54 83 98 10/20/20 21:51 83 140/85 10/20/20 21:49 87 97 10/20/20 21:44 91 H 97 10/20/20 21:41 89 129/65 10/20/20 21:39 90 97 10/20/20 21:34 88 99 10/20/20 21:31 90 18 120/63 10/20/20 21:29 93 H 100 10/20/20 21:24 86 99 10/20/20 21:22 89 18 124/66 12/29/20 21:19 97 H 99 10/20/20 21:14 86 100 10/20/20 21:11 83 141/87 H 10/20/20 21:09 83 98 10/20/20 21:04 80 99 10/20/20 21:02 78 138/77 10/20/20 20:59 79 99 10/20/20 20:54 77 98 10/20/20 20:51 75 128/76 10/20/20 20:49 70 97 10/20/20 20:44 88 99 10/20/20 20:41 77 18 130/85 10/20/20 20:39 82 99 10/20/20 20:36 76 93 10/20/20 20:34 77 98 10/20/20 20:32 77 119/75 10/20/20 20:29 82 99 10/20/20 20:24 77 99 10/20/20 20:21 79 130/76 10/20/20 20:20 36.6 C 18 10/20/20 20:19 84 100 10/20/20 20:14 93 H 100 10/20/20 20:11 93 H 125/76 10/20/20 20:09 85 100 10/20/20 20:04 93 H 100 10/20/20 20:01 82 122/64 10/20/20 19:59 90 99 10/20/20 19:54 92 H 99 10/20/20 19:52 85 123/63 Coding Level of Care Code None Diagnoses Post term over 40 weeks O48.0 Gestational diabetes mellitus (GDM) O24.419
--- NOTE | 2020-10-21 07:55 | Labor Progress Brief Note ---
Date of Service October 21, 2020 Subjective Reason For Note: Routine Evaluation Assessment & Plan (1) Post term over 40 weeks: (2) Gestational diabetes mellitus (GDM): Progressing well. Continue Pitocin Cat 1, AROM clr, Vitals with occasional mild range Admission and Anticipated Discharge Date Admission Date: October 20, 2020 Physical Exam Genitourinary: OB Exam Abdomen: + vertex Manual OB Exam: + cervical dilation (6.5), + cervical effacement 80%, + station 0 and + amniotic fluid OB Exam Monitor Tracing: + external FHT monitor used, + external uterine monitor used, + category I and + normal FHT variability; no early decelerations present, no late decelerations present and no variable decelerations Results & Data ([facility] Vital Signs (Past 12 Hours) Vital Signs Temp Pulse Resp BP Pulse Ox 10/21/20 07:49 96 H 100 10/21/20 07:44 94 H 99 10/21/20 07:42 86 130/79 10/21/20 07:39 88 98 10/21/20 07:34 88 98 10/21/20 07:32 91 H 132/85 10/21/20 07:30 36.7 C 18 10/21/20 07:29 104 H 99 10/21/20 07:24 91 H 98 10/21/20 07:22 98 H 121/70 10/21/20 07:19 93 H 98 10/21/20 07:14 92 H 99 10/21/20 07:12 94 H 126/71 10/21/20 07:09 96 H 98 10/21/20 07:04 98 H 99 10/21/20 06:59 97 H 98 10/21/20 06:54 109 H 98 10/21/20 06:52 109 H 128/69 10/21/20 06:49 101 H 98 10/21/20 06:44 94 H 96 10/21/20 06:41 99 H 119/59 L 10/21/20 06:39 92 H 96 10/21/20 06:34 100 H 95 10/21/20 06:31 95 H 16 124/58 L 10/21/20 06:29 95 H 95 10/21/20 06:24 93 H 96 10/21/20 06:21 92 H 113/56 L 10/21/20 06:19 92 H 96 10/21/20 06:14 89 96 10/21/20 06:12 86 18 111/56 L 10/21/20 06:09 92 H 97 10/21/20 06:04 102 H 96 10/21/20 06:02 101 H 142/62 H 10/21/20 05:59 100 H 96 10/21/20 05:54 107 H 96 10/21/20 05:49 109 H 96 10/21/20 05:44 106 H 96 10/21/20 05:43 108 H 144/66 H 10/21/20 05:39 130 H 97 10/21/20 05:34 102 H 96 10/21/20 05:32 37.3 C 105 H 18 136/65 10/21/20 05:29 110 H 95 10/21/20 05:24 111 H 95 10/21/20 05:21 109 H 112/55 L 10/21/20 05:19 109 H 95 10/21/20 05:16 102 H 91 10/21/20 05:14 106 H 94 10/21/20 05:12 103 H 117/55 L 10/21/20 05:10 102 H 92 10/21/20 05:09 103 H 94 10/21/20 05:04 102 H 94 10/21/20 05:01 101 H 116/53 L 10/21/20 04:59 105 H 94 10/21/20 04:57 105 H 94 10/21/20 04:54 103 H 94 10/21/20 04:52 102 H 94 10/21/20 04:51 100 H 117/54 L 10/21/20 04:49 104 H 95 10/21/20 04:44 104 H 95 10/21/20 04:42 103 H 111/53 L 10/21/20 04:39 104 H 95 10/21/20 04:34 112 H 96 10/21/20 04:31 109 H 18 133/68 10/21/20 04:29 37.3 C 106 H 16 96 10/21/20 04:25 107 H 94 10/21/20 04:24 101 H 94 10/21/20 04:21 109 H 128/62 10/21/20 04:20 97 H 94 10/21/20 04:19 96 H 95 10/21/20 04:14 97 H 94 10/21/20 04:11 99 H 121/59 L 10/21/20 04:09 96 H 94 10/21/20 04:04 95 H 94 10/21/20 04:02 96 H 94 10/21/20 04:01 92 H 18 118/56 L 10/21/20 03:59 96 H 94 10/21/20 03:57 91 H 94 10/21/20 03:54 99 H 94 10/21/20 03:52 89 126/64 10/21/20 03:51 95 H 94 10/21/20 03:49 94 H 95 10/21/20 03:44 87 95 10/21/20 03:41 89 16 119/63 10/21/20 03:39 92 H 95 10/21/20 03:34 91 H 97 10/21/20 03:32 96 H 18 139/67 10/21/20 03:29 88 98 10/21/20 03:24 113 H 98 10/21/20 03:22 109 H 129/65 10/21/20 03:19 104 H 96 10/21/20 03:14 102 H 96 10/21/20 03:11 96 H 122/57 L 10/21/20 03:09 102 H 93 10/21/20 03:04 98 H 96 10/21/20 03:02 99 H 93 10/21/20 03:01 110 H 16 123/60 10/21/20 02:59 104 H 96 10/21/20 02:56 97 H 94 10/21/20 02:54 91 H 96 10/21/20 02:51 93 H 122/59 L 10/21/20 02:49 94 H 96 10/21/20 02:44 95 H 97 10/21/20 02:41 93 H 16 118/56 L 10/21/20 02:39 95 H 97 10/21/20 02:34 94 H 97 10/21/20 02:33 98 H 126/62 10/21/20 02:32 36.9 C 18 10/21/20 02:29 101 H 98 10/21/20 02:24 104 H 97 10/21/20 02:19 85 97 10/21/20 02:14 86 96 10/21/20 02:09 90 95 10/21/20 02:04 93 H 94 10/21/20 02:01 94 H 18 136/71 10/21/20 01:59 86 96 10/21/20 01:54 86 95 10/21/20 01:51 85 131/69 94 10/21/20 01:49 85 95 10/21/20 01:44 81 95 10/21/20 01:41 86 133/78 10/21/20 01:39 83 96 10/21/20 01:34 81 96 10/21/20 01:31 85 127/71 10/21/20 01:29 83 97 10/21/20 01:24 82 98 10/21/20 01:22 81 18 130/74 10/21/20 01:19 86 98 10/21/20 01:14 80 98 10/21/20 01:11 83 119/71 10/21/20 01:09 83 99 10/21/20 01:08 36.5 C 18 10/21/20 01:04 88 100 10/21/20 01:02 83 133/83 10/21/20 00:59 88 100 10/21/20 00:54 87 99 10/21/20 00:51 88 135/68 10/21/20 00:49 88 98 10/21/20 00:44 88 99 10/21/20 00:41 87 128/67 10/21/20 00:39 88 100 10/21/20 00:36 36.8 C 18 10/21/20 00:34 89 99 10/21/20 00:31 89 119/69 10/21/20 00:29 89 99 10/21/20 00:25 18 10/21/20 00:24 102 H 99 10/21/20 00:22 99 H 139/79 10/21/20 00:19 74 96 10/21/20 00:14 71 96 10/21/20 00:11 74 141/78 H 10/21/20 00:09 72 97 10/21/20 00:04 75 97 10/21/20 00:01 78 18 138/77 10/20/20 23:59 75 98 10/20/20 23:54 79 98 10/20/20 23:51 74 137/78 10/20/20 23:49 77 99 10/20/20 23:47 36.7 C 18 10/20/20 23:44 80 100 10/20/20 23:42 88 139/74 10/20/20 23:39 82 99 10/20/20 23:34 81 97 10/20/20 23:32 78 126/77 10/20/20 23:29 90 97 10/20/20 23:24 98 H 99 10/20/20 23:21 96 H 129/80 10/20/20 23:19 96 H 100 10/20/20 23:14 91 H 99 10/20/20 23:12 93 H 18 131/69 10/20/20 23:09 93 H 99 10/20/20 23:04 91 H 99 10/20/20 23:01 91 H 18 126/64 10/20/20 22:59 93 H 98 10/20/20 22:54 88 98 10/20/20 22:49 80 98 10/20/20 22:44 84 96 10/20/20 22:41 80 139/73 10/20/20 22:39 79 96 10/20/20 22:34 77 96 10/20/20 22:31 72 137/72 10/20/20 22:29 77 97 10/20/20 22:24 77 97 10/20/20 22:22 80 137/81 10/20/20 22:19 78 97 10/20/20 22:14 77 97 10/20/20 22:13 80 16 132/78 10/20/20 22:09 79 97 10/20/20 22:04 107 H 99 10/20/20 22:02 88 139/85 10/20/20 21:59 92 H 99 10/20/20 21:56 36.6 C 18 10/20/20 21:54 83 98 10/20/20 21:51 83 140/85 10/20/20 21:49 87 97 10/20/20 21:44 91 H 97 10/20/20 21:41 89 129/65 10/20/20 21:39 90 97 10/20/20 21:34 88 99 10/20/20 21:31 90 18 120/63 10/20/20 21:29 93 H 100 10/20/20 21:24 86 99 10/20/20 21:22 89 18 124/66 10/20/20 21:19 97 H 99 10/20/20 21:14 86 100 10/20/20 21:11 83 141/87 H 10/20/20 21:09 83 98 10/20/20 21:04 80 99 10/20/20 21:02 78 138/77 10/20/20 20:59 79 99 10/20/20 20:54 77 98 10/20/20 20:51 75 128/76 10/20/20 20:49 70 97 10/20/20 20:44 88 99 10/20/20 20:41 77 18 130/85 10/20/20 20:39 82 99 10/20/20 20:36 76 93 10/20/20 20:34 77 98 10/20/20 20:32 77 119/75 10/20/20 20:29 82 99 10/20/20 20:24 77 99 10/20/20 20:21 79 130/76 10/20/20 20:20 36.6 C 18 10/20/20 20:19 84 100 10/20/20 20:14 93 H 100 10/20/20 20:11 93 H 125/76 10/20/20 20:09 85 100 10/20/20 20:04 93 H 100 10/20/20 20:01 82 122/64 10/20/20 19:59 90 99 10/20/20 19:54 92 H 99 Coding Level of Care Code None Diagnoses Post term over 40 weeks O48.0 Gestational diabetes mellitus (GDM) O24.419
[2020-10-21] MEDS ORDERED: fentaNYL citrate 100 MCG/2 ML VIAL ONE ×2 (11:32→13:27)
--- NOTE | 2020-10-21 11:39 | Communication Note ---
Date of Service: October 21, 2020 At 1134, pt epidural was bolused w/ 12 ml 0.17% bupivacaine + 100 mcgs fentanyl. Negative aspiration w/ incremental injection w/o incident. VS's stable.
[2020-10-21] MEDS ORDERED: LACTATED RINGER'S 1,000 ML IV SCH ×2 (13:00→15:15)
[2020-10-21] MEDS ORDERED: CITRIC ACID/SODIUM CITRATE 15 ML UDC PO ONE (13:15)
[2020-10-21] MEDS ORDERED: OXYTOCIN 10 UNITS/ML VIAL ONE ×4 (13:25→14:22)
[2020-10-21] MEDS ORDERED: MoRPHine SULFATE PF 1 MG/ML 10 ML AMP/VIAL ONE (13:27)
[2020-10-21] MEDS ORDERED: PHENYLEPHRINE 100MCG/ML 5ML SYR ONE (13:51)
[2020-10-21] MEDS ORDERED: ONDANSETRON INJ 2 MG/ML 2 ML VIAL ONE (13:51)
[2020-10-21] MEDS ORDERED: MoRPHine SULFATE PF 1 MG/ML 10 ML AMP/VIAL INT SPINAL ONE (14:07)
[2020-10-21] MEDS ORDERED: NALOXONE HCL 1 MG in SODIUM CHLORIDE 0.9% 1000ML 1,000 ML IV PRN (14:07)
[2020-10-21] MEDS ORDERED: PROMETHAZINE HCL 25 MG in SODIUM CHLORIDE 0.9% 50 ML IV PRN (14:07)
[2020-10-21] MEDS ORDERED: ONDANSETRON INJ 2 MG/ML 2 ML VIAL IV PRN (14:07)
[2020-10-21] MEDS ORDERED: NALOXONE HCL 0.4 MG/1 ML VIAL/CARP IV PRN (14:07)
[2020-10-21] MEDS ORDERED: LACTATED RINGER'S 500 ML IV PRN (14:07)
[2020-10-21] MEDS ORDERED: NALOXONE HCL 0.08 MG in SYRINGE 1.8 ML IV PRN (14:07)
[2020-10-21] MEDS ORDERED: diphenhydrAMINE 50 MG/ML VIAL IV PRN (14:07)
[2020-10-21] MEDS ORDERED: ePHEDrine sulfate 50 MG/ML AMP IV PRN (14:07)
--- NOTE | 2020-10-21 14:11 | Anesthesia Procedure Note ---
Date of Service October 21, 2020 Anesthesia Post Epidural Note Vital Signs Vital Signs: Temp Pulse Resp BP Pulse Ox 36.9 C 117 H 18 132/70 100 10/21/20 11:43 10/21/20 13:24 10/21/20 12:00 10/21/20 13:03 10/21/20 13:24 Pain Intensity Lower Abdomen: Pain Intensity: 7 Notes Mental Status: alert / awake / arousable Nausea / Vomiting: adequately controlled Pain: adequately controlled Airway Patency, RR, SpO2: stable & adequate BP & HR: stable & adequate Hydration State: stable & adequate Neuraxial Anesthesia: was administered and sensory block is resolving Anesthetic Complications: no major complications apparent Epidural: Removed without complications and With tip intact Notes: at 1334, intraop, pt epidural was removed w/ tip intact prior to SAB
[2020-10-21] MEDS ORDERED: NO NARCOTICS OR SEDATIVES SCH (14:15)
[2020-10-21] MEDS ORDERED: SODIUM CHLORIDE 0.9% 1000ML 1,000 ML IV SCH (14:15)
[2020-10-21] MEDS ORDERED: OXYTOCIN 10 UNITS/ML VIAL IM ONE (14:25)
[2020-10-21] MEDS ORDERED: ePHEDrine sulfate 50 MG/ML SYR ONE (14:25)
--- NOTE | 2020-10-21 14:53 | Post Operative Brief Note ---
PG Immediate Post Op with CF Date of Surgery October 21, 2020 Pre & Post Diagnosis Operation Date: 10/21/20 13:00 Pre-Op Diagnosis: Failed Induction/Arrest of Descent Post-Op Diagnosis: Same as Preop I identified the patient and participated in the time-out.: Yes Procedure Operation Date: 10/21/20 13:00 Actual Procedures plow transverse Section in LD, Live Male at 1358(Bilateral) - Ammy Paez MD, FACOG Surgeon Ammy Paez MD, FACOG [employer] Dr. Casey Hathaway Estimated Blood Loss 800 Findings Consistent with Post-Op Diagnosis Specimens Specimen Description: Placenta (hold) Cord Blood Drains Patel Catheter
[2020-10-21] MEDS ORDERED: BENZOCAINE 20% AER SPR 82.5 GM CAN EXT PRN (15:02)
[2020-10-21] MEDS ORDERED: HYDROCORTISONE ACETATE 25 MG SUPP PR PRN (15:02)
[2020-10-21] MEDS ORDERED: DIPHTHERIA/TETANUS/PERTUSSIS 0.5 ML SYR/VIAL IM ONE (15:02)
[2020-10-21] MEDS ORDERED: SENNA 8.6 MG TAB PO PRN (15:02)
[2020-10-21] MEDS ORDERED: MAGNESIUM HYDROXIDE SUSP 30 ML UDC PO PRN (15:02)
[2020-10-21] MEDS ORDERED: SUPERCREAM 0.870% 15 GM JAR EXT PRN (15:02)
--- NOTE | 2020-10-21 16:08 | Anesthesiology Progress Note ---
Date of Service October 21, 2020 Anesthesia Post Procedure Vital Signs Vital Signs: Temp Pulse Pulse Resp BP BP Pulse Ox 10/21/20 16:02 109 H 98 10/21/20 16:00 110 H 18 98 10/21/20 15:57 110 H 98 10/21/20 15:56 108 H 112/68 10/21/20 15:52 109 H 98 10/21/20 15:50 108 H 18 112/68 10/21/20 15:47 106 H 97 10/21/20 15:46 106 H 112/59 L 10/21/20 15:42 104 H 99 10/21/20 15:40 103 H 18 115/54 L 99 10/21/20 15:38 107 H 115/54 L 10/21/20 15:37 104 H 97 10/21/20 15:35 109 H 91 10/21/20 15:32 110 H 96 10/21/20 15:30 104 H 18 97 10/21/20 15:27 119 H 99 10/21/20 15:22 100 H 99 10/21/20 15:21 102 H 125/61 10/21/20 15:20 104 H 97 10/21/20 15:17 112 H 99 10/21/20 15:12 119 H 97 10/21/20 15:10 109 H 18 125/61 91 10/21/20 15:07 116 H 98 10/21/20 15:02 103 H 96 10/21/20 15:00 37.1 C 119 H 111 H 18 117/56 L 117/56 L 99 10/21/20 14:59 111 H 117/56 L 10/21/20 13:24 117 H 100 10/21/20 13:19 121 H 99 10/21/20 13:14 118 H 100 10/21/20 13:09 112 H 100 10/21/20 13:04 106 H 99 10/21/20 13:03 106 H 132/70 10/21/20 13:00 18 10/21/20 12:59 102 H 99 10/21/20 12:54 101 H 98 10/21/20 12:53 109 H 148/83 H 10/21/20 12:49 102 H 100 10/21/20 12:44 103 H 100 10/21/20 12:42 112 H 144/91 H 10/21/20 12:39 107 H 98 10/21/20 12:34 138 H 99 10/21/20 12:29 115 H 100 10/21/20 12:24 93 H 97 10/21/20 12:23 90 140/80 10/21/20 12:19 93 H 98 10/21/20 12:14 90 98 10/21/20 12:13 103 H 136/82 10/21/20 12:09 91 H 98 10/21/20 12:04 89 98 10/21/20 12:02 88 146/81 H 10/21/20 12:00 18 10/21/20 11:59 100 H 99 10/21/20 11:54 104 H 100 10/21/20 11:52 93 H 151/88 H 10/21/20 11:49 88 143/87 H 98 10/21/20 11:47 10/21/20 11:46 93 H 138/84 10/21/20 11:44 93 H 99 10/21/20 11:43 36.9 C 91 H 18 166/93 H 10/21/20 11:40 92 H 157/87 H 10/21/20 11:39 95 H 100 10/21/20 11:37 100 H 162/93 H 10/21/20 11:34 101 H 99 10/21/20 11:31 117 H 185/107 H 10/21/20 11:29 112 H 96 10/21/20 11:24 98 H 99 10/21/20 11:21 102 H 168/91 H 10/21/20 11:19 93 H 99 10/21/20 11:14 99 H 100 10/21/20 11:09 99 H 100 10/21/20 11:04 98 H 100 10/21/20 11:02 86 124/64 74 L 10/21/20 11:00 18 10/21/20 10:59 90 100 10/21/20 10:54 92 H 100 10/21/20 10:49 87 100 10/21/20 10:44 101 H 100 10/21/20 10:42 93 H 129/68 10/21/20 10:39 95 H 99 10/21/20 10:34 93 H 100 10/21/20 10:32 91 H 139/90 10/21/20 10:30 18 10/21/20 10:29 105 H 100 10/21/20 10:24 84 100 10/21/20 10:22 82 133/83 10/21/20 10:19 90 100 10/21/20 10:14 98 H 99 10/21/20 10:12 87 119/66 10/21/20 10:09 85 100 10/21/20 10:04 87 100 10/21/20 10:02 86 121/79 10/21/20 10:00 18 10/21/20 09:59 84 100 10/21/20 09:54 89 99 10/21/20 09:49 85 100 10/21/20 09:44 89 100 10/21/20 09:39 93 H 100 10/21/20 09:34 90 99 10/21/20 09:29 99 H 98 10/21/20 09:24 88 99 10/21/20 09:21 85 132/65 10/21/20 09:19 91 H 99 10/21/20 09:14 97 H 99 10/21/20 09:11 98 H 138/72 10/21/20 09:09 91 H 100 10/21/20 09:04 100 H 100 10/21/20 09:02 93 H 118/61 10/21/20 09:00 36.9 C 18 10/21/20 08:59 87 100 10/21/20 08:54 85 98 10/21/20 08:52 89 128/65 10/21/20 08:49 100 H 99 10/21/20 08:44 102 H 99 10/21/20 08:42 85 128/73 10/21/20 08:39 90 99 10/21/20 08:34 85 99 10/21/20 08:32 90 135/76 10/21/20 08:29 101 H 100 10/21/20 08:24 86 100 10/21/20 08:21 82 141/81 H 10/21/20 08:19 83 99 10/21/20 08:14 87 100 10/21/20 08:11 83 135/79 10/21/20 08:09 84 99 10/21/20 08:04 95 H 100 10/21/20 08:02 112 H 135/92 10/21/20 08:00 18 10/21/20 07:59 134 H 98 10/21/20 07:54 92 H 100 10/21/20 07:52 97 H 121/83 10/21/20 07:49 96 H 100 10/21/20 07:44 94 H 99 10/21/20 07:42 86 130/79 10/21/20 07:39 88 98 10/21/20 07:34 88 98 10/21/20 07:32 91 H 132/85 10/21/20 07:30 36.7 C 18 10/21/20 07:29 104 H 99 10/21/20 07:24 91 H 98 10/21/20 07:22 98 H 121/70 10/21/20 07:19 93 H 98 10/21/20 07:14 92 H 99 10/21/20 07:12 94 H 126/71 10/21/20 07:09 96 H 98 10/21/20 07:04 98 H 99 10/21/20 06:59 97 H 98 10/21/20 06:54 109 H 98 10/21/20 06:52 109 H 128/69 10/21/20 06:49 101 H 98 10/21/20 06:44 94 H 96 10/21/20 06:41 99 H 119/59 L 10/21/20 06:39 92 H 96 10/21/20 06:34 100 H 95 10/21/20 06:31 95 H 16 124/58 L 10/21/20 06:29 95 H 95 10/21/20 06:24 93 H 96 10/21/20 06:21 92 H 113/56 L 10/21/20 06:19 92 H 96 10/21/20 06:14 89 96 10/21/20 06:12 86 18 111/56 L 10/21/20 06:09 92 H 97 10/21/20 06:04 102 H 96 10/21/20 06:02 101 H 142/62 H 10/21/20 05:59 100 H 96 10/21/20 05:54 107 H 96 10/21/20 05:49 109 H 96 10/21/20 05:44 106 H 96 10/21/20 05:43 108 H 144/66 H 10/21/20 05:39 130 H 97 10/21/20 05:34 102 H 96 10/21/20 05:32 37.3 C 105 H 18 136/65 10/21/20 05:29 110 H 95 10/21/20 05:24 111 H 95 10/21/20 05:21 109 H 112/55 L 10/21/20 05:19 109 H 95 10/21/20 05:16 102 H 91 10/21/20 05:14 106 H 94 10/21/20 05:12 103 H 117/55 L 10/21/20 05:10 102 H 92 10/21/20 05:09 103 H 94 10/21/20 05:04 102 H 94 10/21/20 05:01 101 H 116/53 L 10/21/20 04:59 105 H 94 10/21/20 04:57 105 H 94 10/21/20 04:54 103 H 94 10/21/20 04:52 102 H 94 10/21/20 04:51 100 H 117/54 L 10/21/20 04:49 104 H 95 10/21/20 04:44 104 H 95 10/21/20 04:42 103 H 111/53 L 10/21/20 04:39 104 H 95 10/21/20 04:34 112 H 96 10/21/20 04:31 109 H 18 133/68 10/21/20 04:29 37.3 C 106 H 16 96 10/21/20 04:25 107 H 94 10/21/20 04:24 101 H 94 10/21/20 04:21 109 H 128/62 10/21/20 04:20 97 H 94 10/21/20 04:19 96 H 95 10/21/20 04:14 97 H 94 10/21/20 04:11 99 H 121/59 L 10/21/20 04:09 96 H 94 10/21/20 04:04 95 H 94 10/21/20 04:02 96 H 94 10/21/20 04:01 92 H 18 118/56 L 10/21/20 03:59 96 H 94 10/21/20 03:57 91 H 94 10/21/20 03:54 99 H 94 10/21/20 03:52 89 126/64 10/21/20 03:51 95 H 94 10/21/20 03:49 94 H 95 10/21/20 03:44 87 95 10/21/20 03:41 89 16 119/63 10/21/20 03:39 92 H 95 10/21/20 03:34 91 H 97 10/21/20 03:32 96 H 18 139/67 10/21/20 03:29 88 98 10/21/20 03:24 113 H 98 10/21/20 03:22 109 H 129/65 10/21/20 03:19 104 H 96 10/21/20 03:14 102 H 96 10/21/20 03:11 96 H 122/57 L 10/21/20 03:09 102 H 93 10/21/20 03:04 98 H 96 10/21/20 03:02 99 H 93 10/21/20 03:01 110 H 16 123/60 10/21/20 02:59 104 H 96 10/21/20 02:56 97 H 94 10/21/20 02:54 91 H 96 10/21/20 02:51 93 H 122/59 L 10/21/20 02:49 94 H 96 10/21/20 02:44 95 H 97 10/21/20 02:41 93 H 16 118/56 L 10/21/20 02:39 95 H 97 10/21/20 02:34 94 H 97 10/21/20 02:33 98 H 126/62 10/21/20 02:32 36.9 C 18 10/21/20 02:29 101 H 98 10/21/20 02:24 104 H 97 10/21/20 02:19 85 97 10/21/20 02:14 86 96 10/21/20 02:09 90 95 10/21/20 02:04 93 H 94 10/21/20 02:01 94 H 18 136/71 10/21/20 01:59 86 96 10/21/20 01:54 86 95 10/21/20 01:51 85 131/69 94 10/21/20 01:49 85 95 10/21/20 01:44 81 95 10/21/20 01:41 86 133/78 10/21/20 01:39 83 96 10/21/20 01:34 81 96 10/21/20 01:31 85 127/71 10/21/20 01:29 83 97 10/21/20 01:24 82 98 10/21/20 01:22 81 18 130/74 10/21/20 01:19 86 98 10/21/20 01:14 80 98 10/21/20 01:11 83 119/71 10/21/20 01:09 83 99 10/21/20 01:08 36.5 C 18 10/21/20 01:04 88 100 10/21/20 01:02 83 133/83 10/21/20 00:59 88 100 10/21/20 00:54 87 99 10/21/20 00:51 88 135/68 10/21/20 00:49 88 98 10/21/20 00:44 88 99 10/21/20 00:41 87 128/67 10/21/20 00:39 88 100 10/21/20 00:36 36.8 C 18 10/21/20 00:34 89 99 10/21/20 00:31 89 119/69 10/21/20 00:29 89 99 10/21/20 00:25 18 10/21/20 00:24 102 H 99 10/21/20 00:22 99 H 139/79 10/21/20 00:19 74 96 10/21/20 00:14 71 96 10/21/20 00:11 74 141/78 H 10/21/20 00:09 72 97 10/21/20 00:04 75 97 10/21/20 00:01 78 18 138/77 10/20/20 23:59 75 98 10/20/20 23:54 79 98 10/20/20 23:51 74 137/78 10/20/20 23:49 77 99 10/20/20 23:47 36.7 C 18 10/20/20 23:44 80 100 10/20/20 23:42 88 139/74 10/20/20 23:39 82 99 10/20/20 23:34 81 97 10/20/20 23:32 78 126/77 10/20/20 23:29 90 97 10/20/20 23:24 98 H 99 10/20/20 23:21 96 H 129/80 10/20/20 23:19 96 H 100 10/20/20 23:14 91 H 99 10/20/20 23:12 93 H 18 131/69 10/20/20 23:09 93 H 99 10/20/20 23:04 91 H 99 10/20/20 23:01 91 H 18 126/64 10/20/20 22:59 93 H 98 10/20/20 22:54 88 98 10/20/20 22:49 80 98 10/20/20 22:44 84 96 10/20/20 22:41 80 139/73 10/20/20 22:39 79 96 10/20/20 22:34 77 96 10/20/20 22:31 72 137/72 10/20/20 22:29 77 97 10/20/20 22:24 77 97 10/20/20 22:22 80 137/81 10/20/20 22:19 78 97 10/20/20 22:14 77 97 10/20/20 22:13 80 16 132/78 10/20/20 22:09 79 97 10/20/20 22:04 107 H 99 10/20/20 22:02 88 139/85 10/20/20 21:59 92 H 99 10/20/20 21:56 36.6 C 18 10/20/20 21:54 83 98 10/20/20 21:51 83 140/85 10/20/20 21:49 87 97 10/20/20 21:44 91 H 97 10/20/20 21:41 89 129/65 10/20/20 21:39 90 97 10/20/20 21:34 88 99 10/20/20 21:31 90 18 120/63 10/20/20 21:29 93 H 100 10/20/20 21:24 86 99 10/20/20 21:22 89 18 124/66 10/20/20 21:19 97 H 99 10/20/20 21:14 86 100 10/20/20 21:11 83 141/87 H 10/20/20 21:09 83 98 10/20/20 21:04 80 99 10/20/20 21:02 78 138/77 10/20/20 20:59 79 99 10/20/20 20:54 77 98 10/20/20 20:51 75 128/76 10/20/20 20:49 70 97 10/20/20 20:44 88 99 10/20/20 20:41 77 18 130/85 10/20/20 20:39 82 99 10/20/20 20:36 76 93 10/20/20 20:34 77 98 10/20/20 20:32 77 119/75 10/20/20 20:29 82 99 10/20/20 20:24 77 99 10/20/20 20:21 79 130/76 10/20/20 20:20 36.6 C 18 10/20/20 20:19 84 100 10/20/20 20:14 93 H 100 10/20/20 20:11 93 H 125/76 10/20/20 20:09 85 100 10/20/20 20:04 93 H 100 10/20/20 20:01 82 122/64 10/20/20 19:59 90 99 10/20/20 19:54 92 H 99 10/20/20 19:52 85 123/63 10/20/20 19:49 85 99 10/20/20 19:44 87 99 10/20/20 19:41 82 120/65 10/20/20 19:39 85 100 10/20/20 19:34 85 99 10/20/20 19:31 85 18 119/63 10/20/20 19:29 85 99 10/20/20 19:24 85 99 10/20/20 19:21 84 118/64 10/20/20 19:19 85 99 10/20/20 19:14 86 100 10/20/20 19:11 86 120/69 10/20/20 19:09 96 H 100 10/20/20 19:04 93 H 100 10/20/20 19:01 37.0 C 88 18 127/70 10/20/20 19:00 18 10/20/20 18:59 85 100 10/20/20 18:54 87 99 10/20/20 18:52 81 130/69 10/20/20 18:49 83 100 10/20/20 18:44 81 99 10/20/20 18:42 82 138/79 10/20/20 18:39 90 99 10/20/20 18:34 82 99 10/20/20 18:32 80 130/75 10/20/20 18:30 18 10/20/20 18:29 99 H 100 10/20/20 18:24 85 100 10/20/20 18:22 91 H 140/71 10/20/20 18:19 82 99 10/20/20 18:14 83 98 10/20/20 18:12 81 129/79 10/20/20 18:09 84 98 10/20/20 18:04 82 98 10/20/20 18:03 80 94 10/20/20 18:01 80 134/77 10/20/20 18:00 36.8 C 18 10/20/20 17:59 82 98 10/20/20 17:54 84 99 10/20/20 17:52 80 132/72 10/20/20 17:49 83 100 10/20/20 17:44 90 99 10/20/20 17:42 78 129/71 10/20/20 17:39 77 99 10/20/20 17:34 86 99 10/20/20 17:31 80 131/71 10/20/20 17:30 36.7 C 18 10/20/20 17:29 84 100 10/20/20 17:24 84 100 10/20/20 17:21 80 129/66 10/20/20 17:19 86 100 10/20/20 17:14 78 100 10/20/20 17:12 71 130/73 10/20/20 17:09 78 99 10/20/20 17:04 71 100 10/20/20 17:03 76 131/75 10/20/20 16:59 84 99 10/20/20 16:54 81 99 10/20/20 16:52 72 132/74 10/20/20 16:49 77 99 10/20/20 16:44 85 99 10/20/20 16:42 83 134/72 10/20/20 16:39 81 100 10/20/20 16:34 76 100 10/20/20 16:31 81 142/69 H 10/20/20 16:30 36.6 C 18 10/20/20 16:29 90 100 10/20/20 16:24 76 99 10/20/20 16:22 86 126/75 10/20/20 16:19 77 100 10/20/20 16:14 90 99 10/20/20 16:12 79 132/79 10/20/20 16:09 73 99 Pulse Ox 10/21/20 16:02 10/21/20 16:00 10/21/20 15:57 10/21/20 15:56 10/21/20 15:52 10/21/20 15:50 10/21/20 15:47 10/21/20 15:46 10/21/20 15:42 10/21/20 15:40 10/21/20 15:38 10/21/20 15:37 10/21/20 15:35 10/21/20 15:32 10/21/20 15:30 10/21/20 15:27 10/21/20 15:22 10/21/20 15:21 10/21/20 15:20 10/21/20 15:17 10/21/20 15:12 10/21/20 15:10 10/21/20 15:07 10/21/20 15:02 10/21/20 15:00 10/21/20 14:59 10/21/20 13:24 10/21/20 13:19 10/21/20 13:14 10/21/20 13:09 10/21/20 13:04 10/21/20 13:03 10/21/20 13:00 10/21/20 12:59 10/21/20 12:54 10/21/20 12:53 10/21/20 12:49 10/21/20 12:44 10/21/20 12:42 10/21/20 12:39 10/21/20 12:34 10/21/20 12:29 10/21/20 12:24 10/21/20 12:23 10/21/20 12:19 10/21/20 12:14 10/21/20 12:13 10/21/20 12:09 10/21/20 12:04 10/21/20 12:02 10/21/20 12:00 10/21/20 11:59 10/21/20 11:54 10/21/20 11:52 10/21/20 11:49 10/21/20 11:47 98 10/21/20 11:46 10/21/20 11:44 10/21/20 11:43 10/21/20 11:40 10/21/20 11:39 10/21/20 11:37 10/21/20 11:34 10/21/20 11:31 10/21/20 11:29 10/21/20 11:24 10/21/20 11:21 10/21/20 11:19 10/21/20 11:14 10/21/20 11:09 10/21/20 11:04 10/21/20 11:02 10/21/20 11:00 10/21/20 10:59 10/21/20 10:54 10/21/20 10:49 10/21/20 10:44 10/21/20 10:42 10/21/20 10:39 10/21/20 10:34 10/21/20 10:32 10/21/20 10:30 10/21/20 10:29 10/21/20 10:24 10/21/20 10:22 10/21/20 10:19 10/21/20 10:14 10/21/20 10:12 10/21/20 10:09 10/21/20 10:04 10/21/20 10:02 10/21/20 10:00 10/21/20 09:59 10/21/20 09:54 10/21/20 09:49 10/21/20 09:44 10/21/20 09:39 10/21/20 09:34 10/21/20 09:29 10/21/20 09:24 10/21/20 09:21 10/21/20 09:19 10/21/20 09:14 10/21/20 09:11 10/21/20 09:09 10/21/20 09:04 10/21/20 09:02 10/21/20 09:00 10/21/20 08:59 10/21/20 08:54 10/21/20 08:52 10/21/20 08:49 10/21/20 08:44 10/21/20 08:42 10/21/20 08:39 10/21/20 08:34 10/21/20 08:32 10/21/20 08:29 10/21/20 08:24 10/21/20 08:21 10/21/20 08:19 10/21/20 08:14 10/21/20 08:11 10/21/20 08:09 10/21/20 08:04 10/21/20 08:02 10/21/20 08:00 10/21/20 07:59 10/21/20 07:54 10/21/20 07:52 10/21/20 07:49 10/21/20 07:44 10/21/20 07:42 10/21/20 07:39 10/21/20 07:34 10/21/20 07:32 10/21/20 07:30 10/21/20 07:29 10/21/20 07:24 10/21/20 07:22 10/21/20 07:19 10/21/20 07:14 10/21/20 07:12 10/21/20 07:09 10/21/20 07:04 10/21/20 06:59 10/21/20 06:54 10/21/20 06:52 10/21/20 06:49 10/21/20 06:44 10/21/20 06:41 10/21/20 06:39 10/21/20 06:34 10/21/20 06:31 10/21/20 06:29 10/21/20 06:24 10/21/20 06:21 10/21/20 06:19 10/21/20 06:14 10/21/20 06:12 10/21/20 06:09 10/21/20 06:04 10/21/20 06:02 10/21/20 05:59 10/21/20 05:54 10/21/20 05:49 10/21/20 05:44 10/21/20 05:43 10/21/20 05:39 10/21/20 05:34 10/21/20 05:32 10/21/20 05:29 10/21/20 05:24 10/21/20 05:21 10/21/20 05:19 10/21/20 05:16 10/21/20 05:14 10/21/20 05:12 10/21/20 05:10 10/21/20 05:09 10/21/20 05:04 10/21/20 05:01 10/21/20 04:59 10/21/20 04:57 10/21/20 04:54 10/21/20 04:52 10/21/20 04:51 10/21/20 04:49 10/21/20 04:44 10/21/20 04:42 10/21/20 04:39 10/21/20 04:34 10/21/20 04:31 10/21/20 04:29 10/21/20 04:25 10/21/20 04:24 10/21/20 04:21 10/21/20 04:20 10/21/20 04:19 10/21/20 04:14 10/21/20 04:11 10/21/20 04:09 10/21/20 04:04 10/21/20 04:02 10/21/20 04:01 10/21/20 03:59 10/21/20 03:57 10/21/20 03:54 10/21/20 03:52 10/21/20 03:51 10/21/20 03:49 10/21/20 03:44 10/21/20 03:41 10/21/20 03:39 10/21/20 03:34 10/21/20 03:32 10/21/20 03:29 10/21/20 03:24 10/21/20 03:22 10/21/20 03:19 10/21/20 03:14 10/21/20 03:11 10/21/20 03:09 10/21/20 03:04 10/21/20 03:02 10/21/20 03:01 10/21/20 02:59 10/21/20 02:56 10/21/20 02:54 10/21/20 02:51 10/21/20 02:49 10/21/20 02:44 10/21/20 02:41 10/21/20 02:39 10/21/20 02:34 10/21/20 02:33 10/21/20 02:32 10/21/20 02:29 10/21/20 02:24 10/21/20 02:19 10/21/20 02:14 10/21/20 02:09 10/21/20 02:04 10/21/20 02:01 10/21/20 01:59 10/21/20 01:54 10/21/20 01:51 10/21/20 01:49 10/21/20 01:44 10/21/20 01:41 10/21/20 01:39 10/21/20 01:34 10/21/20 01:31 10/21/20 01:29 10/21/20 01:24 10/21/20 01:22 10/21/20 01:19 10/21/20 01:14 10/21/20 01:11 10/21/20 01:09 10/21/20 01:08 10/21/20 01:04 10/21/20 01:02 10/21/20 00:59 10/21/20 00:54 10/21/20 00:51 10/21/20 00:49 10/21/20 00:44 10/21/20 00:41 10/21/20 00:39 10/21/20 00:36 10/21/20 00:34 10/21/20 00:31 10/21/20 00:29 10/21/20 00:25 10/21/20 00:24 10/21/20 00:22 10/21/20 00:19 10/21/20 00:14 10/21/20 00:11 10/21/20 00:09 10/21/20 00:04 10/21/20 00:01 10/20/20 23:59 10/20/20 23:54 10/20/20 23:51 10/20/20 23:49 10/20/20 23:47 10/20/20 23:44 10/20/20 23:42 10/20/20 23:39 10/20/20 23:34 10/20/20 23:32 10/20/20 23:29 10/20/20 23:24 10/20/20 23:21 10/20/20 23:19 10/20/20 23:14 10/20/20 23:12 10/20/20 23:09 10/20/20 23:04 10/20/20 23:01 10/20/20 22:59 10/20/20 22:54 10/20/20 22:49 10/20/20 22:44 10/20/20 22:41 10/20/20 22:39 10/20/20 22:34 10/20/20 22:31 10/20/20 22:29 10/20/20 22:24 10/20/20 22:22 10/20/20 22:19 10/20/20 22:14 10/20/20 22:13 10/20/20 22:09 10/20/20 22:04 10/20/20 22:02 10/20/20 21:59 10/20/20 21:56 10/20/20 21:54 10/20/20 21:51 10/20/20 21:49 10/20/20 21:44 10/20/20 21:41 10/20/20 21:39 10/20/20 21:34 10/20/20 21:31 10/20/20 21:29 10/20/20 21:24 10/20/20 21:22 10/20/20 21:19 10/20/20 21:14 10/20/20 21:11 10/20/20 21:09 10/20/20 21:04 10/20/20 21:02 10/20/20 20:59 10/20/20 20:54 10/20/20 20:51 10/20/20 20:49 10/20/20 20:44 10/20/20 20:41 10/20/20 20:39 10/20/20 20:36 10/20/20 20:34 10/20/20 20:32 10/20/20 20:29 10/20/20 20:24 10/20/20 20:21 10/20/20 20:20 10/20/20 20:19 10/20/20 20:14 10/20/20 20:11 10/20/20 20:09 10/20/20 20:04 10/20/20 20:01 10/20/20 19:59 10/20/20 19:54 10/20/20 19:52 10/20/20 19:49 10/20/20 19:44 10/20/20 19:41 10/20/20 19:39 10/20/20 19:34 10/20/20 19:31 10/20/20 19:29 10/20/20 19:24 10/20/20 19:21 10/20/20 19:19 10/20/20 19:14 10/20/20 19:11 10/20/20 19:09 10/20/20 19:04 10/20/20 19:01 10/20/20 19:00 10/20/20 18:59 10/20/20 18:54 10/20/20 18:52 10/20/20 18:49 10/20/20 18:44 10/20/20 18:42 10/20/20 18:39 10/20/20 18:34 10/20/20 18:32 10/20/20 18:30 10/20/20 18:29 10/20/20 18:24 10/20/20 18:22 10/20/20 18:19 10/20/20 18:14 10/20/20 18:12 10/20/20 18:09 10/20/20 18:04 10/20/20 18:03 10/20/20 18:01 10/20/20 18:00 10/20/20 17:59 10/20/20 17:54 10/20/20 17:52 10/20/20 17:49 10/20/20 17:44 10/20/20 17:42 10/20/20 17:39 10/20/20 17:34 10/20/20 17:31 10/20/20 17:30 10/20/20 17:29 10/20/20 17:24 10/20/20 17:21 10/20/20 17:19 10/20/20 17:14 10/20/20 17:12 10/20/20 17:09 10/20/20 17:04 10/20/20 17:03 10/20/20 16:59 10/20/20 16:54 10/20/20 16:52 10/20/20 16:49 10/20/20 16:44 10/20/20 16:42 10/20/20 16:39 10/20/20 16:34 10/20/20 16:31 10/20/20 16:30 10/20/20 16:29 10/20/20 16:24 10/20/20 16:22 10/20/20 16:19 10/20/20 16:14 10/20/20 16:12 10/20/20 16:09 Pain Intensity Lower Abdomen: Pain Intensity: 7 Transfer of Care Handoff Completed per policy Notes Mental Status: alert / awake / arousable Patient Amnestic to Procedure: Yes Nausea / Vomiting: adequately controlled Pain: adequately controlled Airway Patency, RR, SpO2: stable & adequate BP & HR: stable & adequate Hydration State: stable & adequate Neuraxial Anesthesia: was administered and sensory block is resolving Anesthetic Complications: no major complications apparent
--- NOTE | 2020-10-21 16:13 | Operative Report ---
[facility] Post Operative Report Pre & Post Diagnosis Operation Date: 10/21/20 13:00 Pre-Op Diagnosis: Failed Induction/Arrest of Descent Post-Op Diagnosis: Same as Preop plus delivery of a viable male 7 lbs 15 ozs I identified the patient and participated in the time-out.: Yes Procedure Operation Date: 10/21/20 13:00 Actual Procedures p low transverse Section in LD, Live Male Infant at 1358(Bilateral) - Ammy Paez MD, FACOG Surgeon Ammy Paez MD, FACOG Grain Origination Specialist Dr. Casey Hathaway Estimated Blood Loss 800 Findings Consistent with Post-Op Diagnosis gravid uterus , bilateral tubes & ovaries are normal. Specimens placenta Drains Patel to straight drainage Anesthesia Type Spinal Complications none Disposition Accompanied Patient To Recovery: Yes Disposition: L&D Indications The patient is a 30-year-old 2 para 0-0-1-0 white female who presented at 40+ weeks for induction of labor because of postterm . The was complicated by gestational diabetes controlled with diet. She received cervical ripening with a cervical balloon on the evening of 10/19. she represented to labor and delivery for continuation of the induction with Pitocin. she made slow progress initially over the first 24 hours At 0800 hrs. she was 6 to 7 cm dilated. Despite adequate contractions she only progressed to 9 cm. with significant molding The head remained at 0 station. she became quite painful and required redosing of her epidural twice. The cervix remains at 9 cm dilated and 0 station. The patient and her were counseled that section was recommended because of arrest of descent and dilation. Because she was too uncomfortable to continue with the induction along with the arrest of descent and dilation they agreed to proceed with low transverse section. All their questions were answered to their satisfaction and they were willing to proceed. Description of Procedure The epidural catheter was removed and the patient received adequate anesthesia via a subarachnoid block, the patient was prepped and draped in the usual sterile fashion. A low transverse skin incision was made with a scalpel and carried to the fascia with the same scalpel. The fascial incision was then extended with Graham scissors and the edges were grasped with Manisha clamps. The underlying rectus muscles were then bluntly sharply we dissected off of the overlying fascia. The rectus muscles were bluntly divided on the midline and the underlying peritoneum entered bluntly as well. The bladder was taken down behind the bladder blade and the bladder was taken down from the lower uterine segment using Metzenbaum scissors. It was then placed behind the bladder blade. The lower uterine segment was entered with a scalpel and extended transversely. Clear amniotic fluid was noted. The infant was delivered from the occiput anterior position that was deeply impacted in the pelvis. The vertex was brought into the incision and with moderate fundal pressure the rest of the delivered easily. The was vigorous and crying and moving all 4 limbs immediately after delivery. The cord was clamped and cut and the infant was handed off to Dr. Kapoor who was the sand temperer in attendance. Placent a was then manually removed and the uterus exteriorized and covered with a clean lap sponge. The uterine cavity was explored and retained membranes were removed. There was significant bleeding coming from the uterine vessels on the left side of the incision. Bleeding was secured with a Edel clamp. T clamps and a ring forcep were used to trace the lower uterine incision edge. The uterus was then closed in 2 layers in a running locking imbricating fashion with 0 Monocryl. Hemostasis was satisfactory after the closure. The posterior cul-de-sac was irrigated with a small amount of normal saline solution. The incision was examined once more and continue to have excellent hemostasis. The uterus was then placed back inside the abdominal cavity. Clot was removed from both gutters. After examining the uterine incision once more for hemostasis and, noting that it was still satisfactory, the rectus muscles were brought together on the midline with individual stitches of 0 Monocryl. The fascia was closed in a running fashion with 0 Vicryl. After irrigating the adipose layer the skin edges were reapproximated with 3-0 Vicryl in a subcuticular fashion. Urine was clear at the end of the case although it was concentrated. Bleeding was controlled with dilute IV Pitocin and fundal massage. Both mother and were stable after the C-sectionand upon arrival back in the labor and delivery room. I attest to the content of the Intraoperative Record and any orders documented therein. Any exceptions are noted below. OB Procedure charges OB Charges 21194 C/S
[2020-10-21] MEDS: OXYTOCIN 20 UNITS in LACTATED RINGER'S 1,000 ML IV SCH (16:28)
[2020-10-21] MEDS: SIMETHICONE 80 MG CHEW PO SCH ×2 (18:01→21:39)
[2020-10-21] MEDS: DOCUSATE SODIUM 100 MG CAP PO SCH (21:38)
[2020-10-21] MEDS: KETOROLAC 30 MG/ML VIAL IV PRN (23:27)
[2020-10-22] MEDS: OXYTOCIN 20 UNITS in LACTATED RINGER'S 1,000 ML IV SCH (01:56)
--- NOTE | 2020-10-22 05:31 | Obstetrical Progress Note ---
Date of Service October 22, 2020 Assessment & Plan (1) Post term over 40 weeks: S/p LTCS for arrest of descent, Day 1 - Feels well today. Eating well, voiding well, ambulating well. - Pain well-controlled with ibuprofen 600mg Q4H PRN. - Vital signs reviewed and WNL. - Hemoglobin reviewed. 11.9 --> 7.6 (today). - Blood Type: A-, antibody negative, GBS negative, Rubella Immune, COVID-19 negative - Continue routine post-op care: encourage ambulation, monitor and control pain with Motrin PRN, continue regular OB diet, monitor lochia - Encourage breast feeding. - After discharge, will have 6-wk follow-up with Dr. Gustafson Admission and Anticipated Discharge Date Admission Date: October 20, 2020 Supervising Physician Co-Signing Physician Notes Resident Physician Supervision Note: I was present with Dr. Hathaway during the history and exam. I discussed the case with the resident and agree with the findings and plan as documented in the note. Any exceptions or clarifications are listed here: [None] Documented By: Ammy Paez MD, FACOG Subjective HPI Tere Johnson is a 30 y/o female who is POD #1 following delivery for arrest of descent at 40+ weeks. She reports feeling well overall this morning. abdominal cramping and 0-4/10 pain well managed on analgesics. Patel will be removed later today. Tolerating meals overnight without difficulty. Patient has not tried ambulating yet. passing gas and no bowel movement. Has persistent lochia with some improvement this morning. Currently . Review of Systems Review of Systems: ROS Denies fever or chills. Denies shortness of breath or cough. Denies chest pain. Denies breast pain. Denies dysuria. Denies leg pain or leg swelling. Denies headache or changes in vision. Physical Exam Physical Exam: PE General: Alert, oriented. No acute distress. Cardiac: Regular rate and rhythm. No murmurs. Respiratory: Clear to auscultation bilaterally a/p, no wheezes/rales/rhonchi. No increased work of breathing. Symmetrical chest rise. No respiratory distress. Abdomen: Soft, nontender, nondistended. Bowel sounds present. Uterus: Uterine fundus firm, palpable at umbilicus. Surgical scar clean and healing well. Lower Extremities: No lower extremity edema or swelling. No deep calf pain. Zay's negative bilaterally. Results & Data ([facility]) Vital Signs (Past 12 Hours) Vital Signs Temp Pulse Pulse Resp BP Pulse Ox 10/22/20 03:20 18 94 10/22/20 02:00 20 96 10/22/20 01:44 18 95 10/21/20 23:30 36.7 C 98 H 18 101/63 97 10/21/20 22:00 16 90 10/21/20 21:00 16 96 10/21/20 20:05 36.8 C 94 H 16 131/75 98 10/21/20 20:00 16 98 10/21/20 19:00 18 96 10/21/20 18:00 16 92 10/21/20 17:50 36.4 C L 90 16 115/72 98 Resident Activity Tracking Resident Involvement: Resident Care Provided Care Provided: Adult Hospital Medicine
[2020-10-22 06:29] LABS: Hematocrit (blood only) 22.3 % (37-47); Hemoglobin 7.6 g/dL (12.0-16.0); Mean Corpuscular Hgb Conc 34.1 g/dL (32-36); Mean Platelet Volume 9.5 fL (7.4-10.4); Platelet Count 208 K/uL (130-400); RDW Coefficient of Variation 13.4 % (11.5-14.5); RDW Standard Deviation 44.5 fL (36.4-46.3); Red Blood Count 2.45 M/uL (4.2-5.4); White Blood Count 16.55 K/uL (4.8-10.8)
[2020-10-22 06:30] LABS: Basophils # (auto) 0.01 K/uL (0-0.2); Basophils % (auto) 0.1 %; Eosinophils # (auto) 0.05 K/uL (0-0.5); Eosinophils % (auto) 0.3 %; Immature Granulocytes # (auto) 0.04 K/uL (0.00-0.02); Immature Granulocytes % (auto) 0.2 %; Lymphocytes # (auto) 1.11 K/uL (1.2-3.4); Lymphocytes % (auto) 6.7 %; Monocytes # (auto) 0.83 K/uL (0.11-0.59); Neutrophils # (auto) 14.51 K/uL (1.4-6.5); Neutrophils % (auto) 87.7 %
[2020-10-22] MEDS ORDERED: ACETAMINOPHEN 325 MG TAB PO PRN (07:46)
[2020-10-22] MEDS: KETOROLAC 30 MG/ML VIAL IV PRN (08:01)
[2020-10-22] MEDS ORDERED: diphenhydrAMINE 50 MG/ML VIAL IV PRN (08:08)
[2020-10-22] MEDS ORDERED: ONDANSETRON INJ 2 MG/ML 2 ML VIAL IV PRN (08:08)
[2020-10-22] MEDS ORDERED: PROMETHAZINE HCL 25 MG in SODIUM CHLORIDE 0.9% 50 ML IV PRN (08:08)
[2020-10-22] MEDS ORDERED: DC INTRASPINAL MORPHINE ONE (08:08)
[2020-10-22] MEDS ORDERED: KETOROLAC 30 MG/ML VIAL IV PRN (08:08)
[2020-10-22] MEDS ORDERED: MEPERIDINE HCL 50 MG/ML CARP IV PRN (08:08)
[2020-10-22] MEDS ORDERED: ZOLPIDEM TARTRATE 5 MG TAB PO PRN (08:08)
[2020-10-22] MEDS ORDERED: diphenhydrAMINE Capsule 25 MG CAP PO PRN (08:08)
[2020-10-22] MEDS: PRENATAL VITAMIN 1 TAB PO SCH (08:17)
[2020-10-22] MEDS: FERROUS SULFATE 325 MG TAB PO SCH (08:17)
[2020-10-22] MEDS: SIMETHICONE 80 MG CHEW PO SCH ×4 (08:17→20:28)
[2020-10-22] MEDS: DOCUSATE SODIUM 100 MG CAP PO SCH ×2 (08:17→20:28)
[2020-10-22] MEDS: IBUPROFEN 600 MG TAB PO PRN ×3 (13:41→20:28)
[2020-10-22] MEDS ORDERED: bisacodyL 5 MG TABEC PO SCH (20:00)
[2020-10-23] MEDS: IBUPROFEN 600 MG TAB PO PRN ×5 (00:42→21:09)
--- NOTE | 2020-10-23 07:04 | Obstetrical Progress Note ---
Date of Service October 23, 2020 Assessment & Plan (1) Post term over 40 weeks: Postoperative day #2 from section the patient is anemic her hemoglobin is pending this morning she also had a long labor process over 24 hours I suggested the patient to stay 1 more day and she is agreeable we will work on breast-feeding ambulating and determine where her hemoglobin is later today Subjective Ambulation: ambulating normally Voiding: no voiding problems Passing Gas:: Yes Diet Tolerance:: regular diet Lochia:: Small Feeding Type:: breast feeding Physical Exam Constitutional WD/WN, vitals as above Gastrointestinal (Abdomen) normal bowel sounds, soft, nontender, no hepatosplenomegaly (incision cdi) Results & Data ([facility]) Vital Signs (Past 12 Hours) Vital Signs Temp Pulse Resp BP Pulse Ox 10/23/20 00:40 97.5 F L 90 16 118/76 96 10/22/20 19:45 97.9 F 109 H 18 115/62 97
[2020-10-23 07:10] LABS: Hematocrit (blood only) 20.9 % (37-47)
[2020-10-23] MEDS: DOCUSATE SODIUM 100 MG CAP PO SCH ×2 (08:00→21:09)
[2020-10-23] MEDS: SIMETHICONE 80 MG CHEW PO SCH ×4 (08:00→21:09)
[2020-10-23] MEDS: FERROUS SULFATE 325 MG TAB PO SCH (08:00)
[2020-10-23] MEDS: PRENATAL VITAMIN 1 TAB PO SCH (08:00)
[2020-10-23] MEDS ORDERED: bisacodyL 10 MG SUPP PR PRN (15:02)
[2020-10-23] MEDS: oxyCODONE/ACETAMINOPHEN 5mg/325mg TAB PO PRN ×2 (17:14→21:10)
[2020-10-24] MEDS: oxyCODONE/ACETAMINOPHEN 5mg/325mg TAB PO PRN ×2 (04:24→09:50)
[2020-10-24] MEDS: IBUPROFEN 600 MG TAB PO PRN ×2 (04:25→09:51)
--- NOTE | 2020-10-24 06:22 | Obstetrical Progress Note ---
Date of Service October 24, 2020 Assessment & Plan (1) Post term over 40 weeks: 30 yo POD 3 from pLTCS for arrest of descent, doing well -Meeting all pp milestones -A-/rubella immune/ -f/u 6 weeks for appt -pt remains asymptomatic from hemoglobin and feels very well. Strongly desires discharge, clinically stable for discharge home. Reviewed s/s to call for, pt verbalized understanding Subjective Ambulation: ambulating normally Voiding: no voiding problems Passing Gas:: Yes Diet Tolerance:: regular diet Lochia:: Small Feeding Type:: breast feeding Pain well managed with medication. No issues w/ lightheadedness or dizziness with ambulation, feels very well Review of Systems Denies fevers, chills, n/v, MELO, CP, SOB Physical Exam Constitutional WD/WN, vitals as above no acute distress Respiratory normal respiratory effort, lungs clear to auscultation Cardiovascular RRR, no murmur, no edema Gastrointestinal (Abdomen) Inspection/Auscultation: + abdominal surgical scar (c/d/i) Percussion/Palpation: abdomen soft; abdomen nontender fundus firm at umbilicus and NT Musculoskeletal BLE symmetric, nonerythematous, nontender Results & Data ([facility]) Vital Signs (Past 12 Hours) Vital Signs Temp Pulse Resp BP Pulse Ox 10/23/20 23:30 98.2 F 99 H 17 136/75 98 10/23/20 19:35 98.1 F 102 H 16 125/79
[2020-10-24 07:15] LABS: Hematocrit (blood only) 22.8 % (37-47); Hemoglobin 7.6 g/dL (12.0-16.0); Mean Corpuscular Hemoglobin 30.8 pg (25-34); Mean Corpuscular Hgb Conc 33.3 g/dL (32-36); Mean Corpuscular Volume 92.3 fL (80-100); Mean Platelet Volume 9.1 fL (7.4-10.4); Platelet Count 333 K/uL (130-400); RDW Coefficient of Variation 13.5 % (11.5-14.5); RDW Standard Deviation 45.2 fL (36.4-46.3); Red Blood Count 2.47 M/uL (4.2-5.4); White Blood Count 12.68 K/uL (4.8-10.8)
[2020-10-24] MEDS: PRENATAL VITAMIN 1 TAB PO SCH (08:33)
[2020-10-24] MEDS: FERROUS SULFATE 325 MG TAB PO SCH (08:33)
[2020-10-24] MEDS: DOCUSATE SODIUM 100 MG CAP PO SCH (08:33)
[2020-10-24] MEDS: SIMETHICONE 80 MG CHEW PO SCH (08:33)
--- NOTE | 2020-10-29 03:49 | Discharge Summary (DS) ---
PRINCIPAL DIAGNOSIS: Intrauterine at 41 weeks, failed induction with arrest of descent. PRINCIPAL PROCEDURE: Primary low transverse section. HISTORY: The patient is a 30-year-old 2, para 0-0-1-0 white female who presented at 40+ weeks for induction because of post-term . Her was complicated by gestational diabetes controlled with diet. She had cervical balloon placed on the evening of 10/19/2020 and she reappeared for continuation of her induction. She made very slow progress over the first 24 hours; at 0800 hours she was 6-7 cm dilated. She only progressed to 9 cm beyond that with significant molding. The presenting part remained at 0 station. Epidural analgesia was becoming more ineffective and despite two reboluses she could still continue to be painful. Because there had been no change in dilation or descent of the head, it was felt prudent to proceed with low transverse section. This was done without complications. There was an 800 mL blood loss at the time of the delivery. She had an uncomplicated postop course. She was ambulating and eating regular diet on her first postop day. She had no difficulties with voiding. Oral pain meds were controlling her pain starting on day 2. Hemoglobin on admission was 11.9, hematocrit 35.2. First postop day, hemoglobin was 7.6, hematocrit of 22.3. Second postop day, hemoglobin was 7.0, hematocrit 20.9. Third postop day, hemoglobin was 7.6 with hematocrit of 22.8. She was sent home in good condition with prescriptions for Percocet 1-2 tablets p.o. q. 4 hours p.r.n. pain, Motrin 600 mg p.o. q. 4-6 hours p.r.n. pain. She is to take an additional iron tablet with her vitamin for the next 6 weeks. She is to call for temperature of 101 degrees or higher, heavy vaginal bleeding, burning with urination, increased redness, drainage or pain in her incision, calf tenderness, lightheadedness or syncopal episodes as well as any other concerns. She is to be seen in the office in 6 weeks for visit.
== END 2020-10-24 10:03 | disposition home or self-care (01) | DRG 788 ==
LOC: 4S1 07:30 → 4S2 10-21 18:11

== ENCOUNTER 2022-04-25 22:49 | Inpatient (IN) ==
[2022-04-25] MEDS ORDERED: SODIUM CHLORIDE 0.9% 250 ML IV PRN (23:33)
--- NOTE | 2022-04-25 23:33 | History & Physical Bridge Note ---
Date of Service April 25, 2022 History & Physical Bridge Note I have examined the patient, reviewed the History & Physical and in the interval since the performance of the History & Physical I have noted the following changes of clinical significance: patient presents in active labor with contractions every 2-3 minutes. no SPROM. cervix is 1cm/100/-2 anterior. we will proceed with repeat and bilateral tubal ligation now. patient and FOB are agreeable to this plan and are willing to proceed.
[2022-04-25] MEDS ORDERED: LACTATED RINGER'S 1,000 ML IV SCH (23:45)
[2022-04-26 00:11] LABS: Basophils # (auto) 0.02 K/uL (0-0.2); Basophils % (auto) 0.1 %; Eosinophils % (auto) 1.3 %; Hematocrit (blood only) 35.8 % (37-47); Hemoglobin 12.3 g/dL (12.0-16.0); Immature Granulocytes # (auto) 0.05 K/uL (0.00-0.02); Immature Granulocytes % (auto) 0.3 %; Lymphocytes # (auto) 2.48 K/uL (1.2-3.4); Lymphocytes % (auto) 16.6 %; Mean Corpuscular Hemoglobin 31.5 pg (25-34); Mean Corpuscular Hgb Conc 34.4 g/dL (32-36); Mean Corpuscular Volume 91.6 fL (80-100); Mean Platelet Volume 10.5 fL (7.4-10.4); Monocytes # (auto) 0.78 K/uL (0.11-0.59); Monocytes % (auto) 5.2 %; Neutrophils # (auto) 11.37 K/uL (1.4-6.5); Neutrophils % (auto) 76.5 %; Platelet Count 248 K/uL (130-400); RDW Coefficient of Variation 13.2 % (11.5-14.5); RDW Standard Deviation 43.6 fL (36.4-46.3); Red Blood Count 3.91 M/uL (4.2-5.4)
[2022-04-26] MEDS ORDERED: CITRIC ACID/SODIUM CITRATE 15 ML UDC PO STA (00:11)
[2022-04-26] MEDS ORDERED: MoRPHine SULFATE PF 1 MG/ML 10 ML AMP/VIAL ONE (00:40)
[2022-04-26] MEDS ORDERED: NALOXONE HCL 1 MG in SODIUM CHLORIDE 0.9% 1000ML 1,000 ML IV PRN (01:19)
[2022-04-26] MEDS ORDERED: HYDROmorphone INJ 0.5 MG/0.5 ML SYR IV PRN (01:19)
[2022-04-26] MEDS ORDERED: NALBUPHINE HCL INJ 10 MG/ML AMP IV PRN (01:19)
[2022-04-26] MEDS ORDERED: PROMETHAZINE HCL 6.25 MG in SODIUM CHLORIDE 0.9% 50 ML IV PRN (01:19)
[2022-04-26] MEDS ORDERED: LACTATED RINGER'S 500 ML IV PRN (01:19)
[2022-04-26] MEDS ORDERED: MoRPHine SULFATE PF 1 MG/ML 10 ML AMP/VIAL INT SPINAL ONE (01:19)
[2022-04-26] MEDS ORDERED: MoRPHine SULFATE 2 MG/ML CARP IV PRN (01:19)
[2022-04-26] MEDS ORDERED: diphenhydrAMINE 50 MG/ML VIAL IV PRN ×2 (01:19→19:19)
[2022-04-26] MEDS ORDERED: ONDANSETRON INJ 2 MG/ML 2 ML VIAL IV PRN ×2 (01:19→19:19)
[2022-04-26] MEDS ORDERED: NALOXONE HCL 0.4 MG/1 ML VIAL/CARP IV PRN (01:19)
[2022-04-26] MEDS ORDERED: ePHEDrine sulfate 50 MG/ML AMP IV PRN (01:19)
[2022-04-26] MEDS ORDERED: MEPERIDINE HCL 25 MG/ML CARP/VIAL IV PRN (01:19)
[2022-04-26] MEDS ORDERED: NALOXONE HCL 0.08 MG in SYRINGE 1.8 ML IV PRN (01:19)
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
[2022-04-26] MEDS ORDERED: ERYTHROMYCIN OP OINT 1 GM PKT ONE (01:27)
[2022-04-26] MEDS ORDERED: PHYTONADIONE PED 1 MG/0.5ML AMP/SYRG ONE (01:27)
[2022-04-26] MEDS ORDERED: HEPATITIS B VACCINE RECOMBIN 10 MCG/0.5 ML VIAL IM ONE (01:28)
[2022-04-26] MEDS ORDERED: NO NARCOTICS OR SEDATIVES SCH (01:30)
[2022-04-26] MEDS ORDERED: SODIUM CHLORIDE 0.9% 1000ML 1,000 ML IV SCH (01:30)
[2022-04-26] MEDS ORDERED: DC INTRASPINAL MORPHINE SCH (01:30)
[2022-04-26] MEDS ORDERED: OXYTOCIN 10 UNITS/ML 10ML VIAL ONE (01:55)
[2022-04-26] MEDS ORDERED: ONDANSETRON INJ 2 MG/ML 2 ML VIAL ONE (01:55)
[2022-04-26] MEDS ORDERED: KETOROLAC 30 MG/ML VIAL ONE (01:55)
[2022-04-26] MEDS ORDERED: HYDROCORTISONE ACETATE 25 MG SUPP PR PRN (02:07)
[2022-04-26] MEDS ORDERED: SENNA 8.6 MG TAB PO PRN (02:07)
[2022-04-26] MEDS ORDERED: BENZOCAINE 20% AER SPR 82.5 GM CAN EXT PRN (02:07)
[2022-04-26] MEDS ORDERED: MAGNESIUM HYDROXIDE SUSP 30 ML UDC PO PRN (02:07)
[2022-04-26] MEDS ORDERED: DIPHTHERIA/TETANUS/PERTUSSIS 0.5 ML SYR/VIAL IM ONE (02:07)
--- NOTE | 2022-04-26 02:10 | Anesthesiology Progress Note ---
Date of Service April 26, 2022 Anesthesia Post Procedure Vital Signs Vital Signs: Temp Pulse Resp BP Pulse Ox 04/26/22 02:06 78 115/60 04/26/22 02:04 79 100 04/25/22 23:13 36.9 C 18 04/25/22 23:05 36.9 C 87 20 117/75 Transfer of Care Handoff Completed per policy Notes Mental Status: alert / awake / arousable Nausea / Vomiting: adequately controlled Pain: adequately controlled Airway Patency, RR, SpO2: stable & adequate BP & HR: stable & adequate Hydration State: stable & adequate Neuraxial Anesthesia: was administered and sensory block is resolving Anesthetic Complications: no major complications apparent and Pt Satisfied with anesthetic care
--- NOTE | 2022-04-26 02:13 | Post Operative Brief Note ---
PG Immediate Post Op with CF Date of Surgery April 26, 2022 Pre & Post Diagnosis Operation Date: 04/26/22 00:30 Pre-Op Diagnosis: Repeat Section with Tubal Post-Op Diagnosis: Same I identified the patient and participated in the time-out.: Yes Procedure Operation Date: 04/26/22 00:30 Actual Procedures p Section in LD for LF at 0112(Bilateral) - Ammy Paez MD, FACOG Surgeon Ammy Paez MD, FACOG Wildlife Management Professor Sharon Rodriguez SHOW HOST OR HOSTESS Estimated Blood Loss 500 Findings Consistent with Post-Op Diagnosis Specimens Specimen Description: A. Placenta - hold B. Cord Blood C. Portion of right fallopian tube D. Portion of left fallopian tube Drains Mota Catheter (mota cath placed in OR. Draining clear yellow urine. To be monitored during procedure by anesthesia ) Anesthesia Type Spinal Complications none Disposition Accompanied Patient To Recovery: Yes Disposition: L&D
[2022-04-26] MEDS ORDERED: LACTATED RINGER'S 1,000 ML IV SCH (02:15)
--- NOTE | 2022-04-26 02:29 | Operative Report ---
PG Post Operative Report Pre & Post Diagnosis Operation Date: 04/26/22 00:30 Pre-Op Diagnosis: Repeat Section with Tubal Post-Op Diagnosis: Same I identified the patient and participated in the time-out.: Yes Procedure Operation Date: 04/26/22 00:30 Actual Procedures p Section in LD for [facility] at 0112(Bilateral) - Ammy Paez MD, FACOG Surgeon Ammy Paez MD, FACOG Education Counselor Sharon Rodriguez ANALYTICS INTERN Estimated Blood Loss 500 Findings Consistent with Post-Op Diagnosis Specimens Placenta portions of left and right fallopian tubes Drains mota to straight drainage- clear urine at end of case Anesthesia Type Spinal Complications none Disposition Accompanied Patient To Recovery: Yes Disposition: L&D Indications Patient is a 31-year-old 3 para 1-0-1-1 female who presented with regular contractions and cervical change at 39-2/7 weeks. She was scheduled for a repeat section and bilateral tubal ligation later on 04/26/2022. Because the patient was painful with her contractions we proceeded with repeat section and tubal ligation after appropriate consents labs and meds were given. Description of Procedure As the patient received adequate subarachnoid block she was prepped and draped in usual sterile fashion. A low transverse skin incision was made with a scalpel and carried to the fascia with the same scalpel. The rectus muscles were then bluntly and sharply dissected off of the overlying fascia. The peritoneum was entered bluntly. A band of scar tissue between the abdominal wall and the left anterior fundus was isolated and divided. The bladder was then taken down off the anterior surface of the uterus with Metzenbaum scissors and placed behind the bladder blade. The lower uterine segment was entered with the scalpel and extended transversely. Clear fluid was noted on entering the uterine cavity. The female was delivered from the vertex presentation with moderate fundal pressure. A loose nuchal cord was reduced after delivery of the body. The infant was vigorous crying and moving all 4 limbs. The placenta was then manually removed. The uterus was exteriorized and covered with a clean lap sponge. bleeding was controlled with dilute Pitocin. Uterine cavity was explored found free of any placental tissue or membranes. The uterus was then closed in 2 layers in a running locking imbricating fashion with 0 Monocryl. Single bleeding site on the inferior edge on the midline of the uterine incision was secured with a ucufjl-rh-tkuja stitch of 0 Monocryl. The site of the removal of the band of scar tissue on the uterus was bleeding and this was controlled with direct pressure and a running stitch of 0 Monocryl. At this point hemostasis was excellent. Attention was then turned to the left fallopian tube. There is filmy adhesions of the tube to the lateral uterine sidewall and these were lysed with the Bovie. Tube was then free and a knuckle of tube was developed with a Hailey clamp along the midportion. A suture ligature of 3-0 plain catgut was used to secure the tube. A second suture ligature of the same was used to reinforce the first. The knuckle of tube was then removed and the remaining ends cauterized with the Bovie. The right fallopian tube was identified and followed with fimbriated end as well. The tube was grasped in the midportion with a Hailey clamp. Knuckle of tube was developed with a suture ligature of 3-0 plain catgut which was followed by a second suture ligature of the same. Knuckle of tube was removed and the remaining ends were then cauterized with the Bovie. Small amount of fluid was suctioned out of the posterior cul-de-sac. The uterine incision area of scar on the anterior fundus of the uterus and the tubal sites were once again examined and all had excellent hemostasis. The uterus was then gently placed back in the abdominal cavity. The tubal sites were examined once more and found to continue to have excellent hemostasis as did the uterine incision. The gutters were explored and found to be free of any placental tissue clot or fluid. The rectus muscle were then brought together on the midline with individual stitches of 0 Monocryl. The fascia was closed in a running fashion with 0 Vicryl. After irrigating the adipose layer, the skin edges were reapproximated using a subcuticular stitch of 4-0 Vicryl. Urine was clear at the end the case mother and infant were doing well after delivery. I attest to the content of the Intraoperative Record and any orders documented therein. Any exceptions are noted below. OB Procedure Charges [id number] Add on Tubal for C/S
[2022-04-26] MEDS: OXYTOCIN 20 UNITS in LACTATED RINGER'S 1,000 ML IV SCH ×2 (04:08→13:41)
[2022-04-26] MEDS: KETOROLAC 30 MG/ML VIAL IV PRN ×2 (05:41→12:11)
[2022-04-26] MEDS: SIMETHICONE 80 MG CHEW PO SCH ×3 (08:45→20:09)
[2022-04-26] MEDS: DOCUSATE SODIUM 100 MG CAP PO SCH ×2 (08:45→20:09)
[2022-04-26] MEDS: PRENATAL VITAMIN 1 TAB PO SCH (08:45)
[2022-04-26] MEDS: FERROUS SULFATE 325 MG TAB PO SCH (08:45)
[2022-04-26] MEDS ORDERED: PROMETHAZINE HCL 25 MG in SODIUM CHLORIDE 0.9% 50 ML IV PRN (19:19)
[2022-04-26] MEDS ORDERED: MEPERIDINE HCL 50 MG/ML CARP IV PRN (19:19)
[2022-04-26] MEDS ORDERED: diphenhydrAMINE Capsule 25 MG CAP PO PRN (19:19)
[2022-04-26] MEDS ORDERED: KETOROLAC 30 MG/ML VIAL IV PRN (19:19)
[2022-04-26] MEDS ORDERED: ZOLPIDEM TARTRATE 5 MG TAB PO PRN (19:19)
[2022-04-26] MEDS: IBUPROFEN 600 MG TAB PO PRN (20:09)
[2022-04-26] MEDS: oxyCODONE/ACETAMINOPHEN 5mg/325mg TAB PO PRN (20:10)
[2022-04-27] MEDS: oxyCODONE/ACETAMINOPHEN 5mg/325mg TAB PO PRN ×7 (00:07→23:43)
[2022-04-27 06:32] LABS: Basophils # (auto) 0.04 K/uL (0-0.2); Basophils % (auto) 0.3 %; Eosinophils # (auto) 0.35 K/uL (0-0.5); Hematocrit (blood only) 32.7 % (37-47); Hemoglobin 10.7 g/dL (12.0-16.0); Immature Granulocytes # (auto) 0.05 K/uL (0.00-0.02); Immature Granulocytes % (auto) 0.4 %; Lymphocytes # (auto) 2.14 K/uL (1.2-3.4); Lymphocytes % (auto) 18.1 %; Mean Corpuscular Hemoglobin 29.9 pg (25-34); Mean Corpuscular Hgb Conc 32.7 g/dL (32-36); Mean Corpuscular Volume 91.3 fL (80-100); Mean Platelet Volume 10.3 fL (7.4-10.4); Monocytes # (auto) 0.66 K/uL (0.11-0.59); Monocytes % (auto) 5.6 %; Neutrophils # (auto) 8.58 K/uL (1.4-6.5); Neutrophils % (auto) 72.6 %; Platelet Count 211 K/uL (130-400); RDW Coefficient of Variation 13.5 % (11.5-14.5); RDW Standard Deviation 44.6 fL (36.4-46.3); Red Blood Count 3.58 M/uL (4.2-5.4); White Blood Count 11.82 K/uL (4.8-10.8)
--- NOTE | 2022-04-27 07:10 | Obstetrical Progress Note ---
Date of Service April 27, 2022 Assessment & Plan (1) delivery delivered: Doing well. continue routine care. Encourage ambulation and will see how she does on oral pain meds. h/h good. Day #:: 1 Subjective Ambulation: limited ambulation (to and from BR) Voiding: no voiding problems Passing Gas:: Yes Diet Tolerance:: regular diet Lochia:: Small Feeding Type:: breast feeding Notes she is very sore. Physical Exam Constitutional WD/WN, vitals as above Cardiovascular Extremities: no calf tenderness and no edema Gastrointestinal (Abdomen) soft, nd, appropriately tender, ff/appro tender at u, incision c/d/i Results & Data ([facility]) Vital Signs (Past 12 Hours) Vital Signs Temp Pulse Resp BP Pulse Ox Pulse Ox 04/26/22 23:20 36.8 C 98 H 16 116/66 97 04/26/22 19:30 36.9 C 99 H 20 110/67 97 97
[2022-04-27] MEDS: SIMETHICONE 80 MG CHEW PO SCH ×4 (08:02→20:01)
[2022-04-27] MEDS: PRENATAL VITAMIN 1 TAB PO SCH (08:02)
[2022-04-27] MEDS: DOCUSATE SODIUM 100 MG CAP PO SCH ×2 (08:02→20:01)
[2022-04-27] MEDS: FERROUS SULFATE 325 MG TAB PO SCH (08:02)
[2022-04-27] MEDS: IBUPROFEN 600 MG TAB PO PRN ×4 (08:03→19:40)
[2022-04-27] MEDS ORDERED: bisacodyL 5 MG TABEC PO SCH (20:00)
[2022-04-28] MEDS ORDERED: bisacodyL 5 MG TABEC PO ONE (00:40)
[2022-04-28] MEDS ORDERED: bisacodyL 10 MG SUPP PR PRN (02:07)
[2022-04-28] MEDS: IBUPROFEN 600 MG TAB PO PRN ×2 (04:15→08:11)
[2022-04-28] MEDS: oxyCODONE/ACETAMINOPHEN 5mg/325mg TAB PO PRN ×2 (04:17→08:12)
[2022-04-28 06:09] LABS: Hematocrit (blood only) 31.5 % (34.1-44.9); Hemoglobin 10.2 g/dl (12.0-16.0)
--- NOTE | 2022-04-28 07:07 | Obstetrical Progress Note ---
Date of Service April 28, 2022 Assessment & Plan (1) delivery delivered: 31 yo POD 2from rCS/BTL, doing well -Meeting all pp milestones. Discussed pain control, pt verbalized understanding -A-/rubella immune/, baby Rh neg -f/u 6 weeks for appt, desires d/c home today Subjective Ambulation: ambulating normally Voiding: no voiding problems Passing Gas:: Yes Diet Tolerance:: regular diet Lochia:: Small Feeding Type:: breast feeding Pain managed with medication, still most sore with getting up and ambulating Review of Systems Denies fevers, chills, n/v, MELO, CP, SOB Physical Exam Constitutional WD/WN, vitals as above no acute distress Respiratory normal respiratory effort, lungs clear to auscultation Cardiovascular RRR, no murmur, no edema Gastrointestinal (Abdomen) Inspection/Auscultation: + abdominal surgical scar (c/d/i) Percussion/Palpation: abdomen soft; abdomen nontender fundus firm at umbilicus and NT Musculoskeletal BLE symmetric, nonerythematous, nontender Results & Data ([facility]) Vital Signs (Past 12 Hours) Vital Signs Temp Pulse Resp BP Pulse Ox 04/28/22 00:00 98.2 F 82 20 124/78 97 04/27/22 19:50 97.9 F 100 H 16 119/68 97
[2022-04-28] MEDS: PRENATAL VITAMIN 1 TAB PO SCH (08:11)
[2022-04-28] MEDS: FERROUS SULFATE 325 MG TAB PO SCH (08:11)
[2022-04-28] MEDS: DOCUSATE SODIUM 100 MG CAP PO SCH (08:11)
[2022-04-28] MEDS: SIMETHICONE 80 MG CHEW PO SCH (08:11)
--- NOTE | 2022-05-02 17:04 | Discharge Summary (DS) ---
DATE OF ADMISSION: 04/25/2022 DATE OF DISCHARGE: 04/28/2022 PRINCIPAL DIAGNOSES: Intrauterine at term, in labor with prior section, requestin g repeat section and bilateral tubal ligation. POSTOPERATIVE DIAGNOSES: Intrauterine at term, in labor with prior section, reque sting repeat section and bilateral tubal ligation with delivery of a viable female. HISTORY AND HOSPITAL COURSE: The patient is a 31-year-old 3, para 1-0-1-1 female who present ed with regular contractions at 39 and 2/7th weeks. She was actually scheduled for repeat s ection with tubal ligation the following morning. Because her contractions were painful and regular, we proceeded with the repeat section, tubal ligation after her admission in labor and delive ry. This was done without any complications. Tubal ligation was done at the time of the se ction as well. She had a benign and postoperative course. Her pain was controlled with p .o. pain medication. She was ambulating, voiding and tolerating regular diet on her first postop day . She was sent home in good condition with prescriptions for Percocet 1 tablet p.o. q.4 hours p.r.n. pain, Motrin 600 mg p.o. q.6 hours p.r.n. pain. She is to call for temperature of 101 degrees or hi gher, heavy vaginal bleeding, burning with urination, increased redness, drainage or pain in her inci joe, calf tenderness or any other concerns. Admission hemoglobin was 12.3 with hematocrit of 35.8. First postop day hemoglobin 10.7, hematocrit 32.7. Second postop day hemoglobin 10.2, hematocrit 31 .5. Job ID: [id number]
== END 2022-04-28 10:51 | disposition home or self-care (01) | DRG 785 ==
LOC: OPB 22:49 → 4S1 22:50 → 4E2 04-26 05:36